=== PATIENT | female | born 1965 | race Caucasian/White ===

== ENCOUNTER 2018-06-17 12:04 | Emergency (ER) | payer OTHER, MEDICAID ==
--- NOTE | 2018-06-17 12:18 | EDPHY ---
HPI/HX/ROS/PE/MDM Narrative: CHIEF COMPLAINT: Right lower abdominal pain HPI: The patient is a 52 y/o female with a history of IBS, fibromyalgia, and dissociative identity disorder complaining of waxing and waning right lower abdominal pain, onset 2 weeks ago. She states that since the pain started she has lost 10 pounds. This pain is different than prior IBS flare ups as it is more painful. Around 30 minutes ago the pain exacerbated and started to radiate down into her right pelvis. This pain is currently "excruciating" and she feel like her "appendix is bursting", but it is waxing and waning. She denies history of abdominal surgery. No headache, neck pain, chest pain, shortness of breath, urinary or bowel complaints, numbness, paresthesias, fever. In addition to her IBS history she states that "some of my personalities are so sensitive that I felt seismic waves from hundreds of miles away". REVIEW OF SYSTEMS: Aside from elements discussed in the HPI, a comprehensive 10 system review of systems is otherwise negative. PMH: IBS, dissociative identity disorder, fibromyalgia, reflux SOCIAL HISTORY: Lives in [place], single, not employed PHYSICAL EXAM: General: Patient is alert, in no acute distress. ENT: Eyes are normal to inspection. ENT inspection normal. Neck: Normal inspection. Full range of motion. Respiratory: No respiratory distress. Breath sounds normal bilaterally. Cardiovascular: Regular rate and rhythm. Strong peripheral pulses. Normal cap refill. Abdomen: The abdomen is nontender to palpation. There are no peritoneal signs. There are normal bowel sounds. Back: Normal to inspection. No tenderness to palpation. Skin: Normal color. No rash. Warm and dry. Extremities: Normal appearance. Full range of motion. Neuro: Oriented x3. Normal motor function. Normal sensory function. ED Course: 1410: I reviewed patient's abdominopelvic CT which reveals constipation; radiologist reading still pending. Patient's labs are unremarkable. 1424: I spoke with Dr. Menard, radiologist, who reports that the patient has a right inguinal hernia without incarceration. The appendix is normal. 1429: Reassessed patient and discussed laboratory and imaging findings. I have advised her to follow up with a general surgeon in the next 1-2 weeks for further evaluation of the hernia. I have also advised her to use over-the- counter laxatives for the constipation. Return precautions provided; patient is comfortable with this plan. Upon informing her of these results, the patient said "I told you I have dissociative personality disorder right? So can you please remove my grandfather's hard cock from my 1-year old vagina?" Patient requested pain medication but I informed her that this would likely make constipation worse. - Data Points Imaging Results: Imaging Impressions Abdomen CT 06/17/18 12:33 Impression: 1. Normal CT appearance of the appendix. 2. There appears to be a direct right inguinal hernia containing fluid-filled bowel, with no evidence of incarceration or mechanical obstruction. 3. Moderate constipation. Findings were discussed with Des Sykes MD at 14:23, on 06/17/2018. Imaging: Discussed imaging studies w/ nut tightener Radiologist, I viewed and interpreted images myself Laboratory Results: Laboratory Results 06/17/18 12:32 06/17/18 12:32 06/17/18 06/17/18 06/17/18 12:43 12:37 12:32 WBC RBC Hgb POC Hgb 15.6 gm/dL gm/dL (12.6-16.3) Hct POC Hct 46 % % (38-47) MCV MCH MCHC RDW Plt Count MPV Neut % (Auto) Lymph % (Auto) [place] % (Auto) Eos % (Auto) Baso % (Auto) Nucleat RBC Rel Count Absolute Neuts (auto) Absolute Lymphs (auto) Absolute Monos (auto) Absolute Eos (auto) Absolute Basos (auto) Absolute Nucleated RBC Immature Gran % Immature Gran # POC Sodium 144 mEq/L mEq/L (135-145) Sodium 142 mEq/L mEq/L (135-145) POC Potassium 3.9 mEq/L mEq/L (3.3-5.0) Potassium 4.3 mEq/L mEq/L (3.3-5.0) POC Chloride 104 mEq/L mEq/L (97-110) Chloride 104 mEq/L mEq/L (97-110) Carbon Dioxide 29 mEq/l mEq/l (22-31) Anion Gap 9 mEq/L mEq/L (8-16) POC BUN 11 mg/dL mg/dL (7-23) BUN 13 mg/dL mg/dL (7-23) Creatinine 0.9 mg/dL mg/dL (0.6-1.0) POC Creatinine 0.9 mg/dL mg/dL (0.6-1.0) Estimated GFR > 60 Glucose 100 mg/dL mg/dL (70-100) POC Glucose 98 mg/dL mg/dL (70-100) Calcium 10.3 mg/dL mg/dL (8.5-10.4) Urine Color PALE YELLOW Urine Appearance CLEAR Urine pH 8.0 H (5.0-7.5) Ur Specific Elsie 1.003 (1.002-1.030) Urine Protein NEGATIVE (NEGATIVE) Urine Ketones NEGATIVE (NEGATIVE) Urine Blood NEGATIVE (NEGATIVE) Urine Nitrate NEGATIVE (NEGATIVE) Urine Bilirubin NEGATIVE (NEGATIVE) Urine Urobilinogen NEGATIVE EU EU (0.2-1.0) Ur Leukocyte Esterase NEGATIVE (NEGATIVE) Urine Glucose NEGATIVE (NEGATIVE) 06/17/18 12:32 WBC 5.29 10^3/uL 10^3/uL (3.80-9.50) RBC 5.10 10^6/uL 10^6/uL (4.18-5.33) Hgb 15.0 g/dL g/dL (12.6-16.3) POC Hgb Hct 44.2 % % (38.0-47.0) POC Hct MCV 86.7 fL fL (81.5-99.8) MCH 29.4 pg pg (27.9-34.1) MCHC 33.9 g/dL g/dL (32.4-36.7) RDW 12.0 % % (11.5-15.2) Plt Count 261 10^3/uL 10^3/uL (150-400) MPV 10.6 fL fL (8.7-11.7) Neut % (Auto) 43.4 % % (39.3-74.2) Lymph % (Auto) 46.9 % H % (15.0-45.0) [place] % (Auto) 8.7 % % (4.5-13.0) Eos % (Auto) 0.6 % % (0.6-7.6) Baso % (Auto) 0.2 % L % (0.3-1.7) Nucleat RBC Rel Count 0.0 % % (0.0-0.2) Absolute Neuts (auto) 2.30 10^3/uL 10^3/uL (1.70-6.50) Absolute Lymphs (auto) 2.48 10^3/uL 10^3/uL (1.00-3.00) Absolute Monos (auto) 0.46 10^3/uL 10^3/uL (0.30-0.80) Absolute Eos (auto) 0.03 10^3/uL 10^3/uL (0.03-0.40) Absolute Basos (auto) 0.01 10^3/uL L 10^3/uL (0.02-0.10) Absolute Nucleated RBC 0.00 10^3/uL 10^3/uL (0-0.01) Immature Gran % 0.2 % % (0.0-1.1) Immature Gran # 0.01 10^3/uL 10^3/uL (0.00-0.10) POC Sodium Sodium POC Potassium Potassium POC Chloride Chloride Carbon Dioxide Anion Gap POC BUN BUN Creatinine POC Creatinine Estimated GFR Glucose POC Glucose Calcium Urine Color Urine Appearance Urine pH Ur Specific [place] Urine Protein Urine Ketones Urine Blood Urine Nitrate Urine Bilirubin Urine Urobilinogen Ur Leukocyte Esterase Urine Glucose Medications Given: Discontinued Medications Ketorolac Tromethamine (Toradol) 15 mg IVP EDNOW ONE Stop: 06/17/18 13:02 Last Admin: 06/17/18 13:03 Dose: 15 mg Point of Care Test Results: Chemistry 06/17/18 12:37 POC Sodium 144 mEq/L mEq/L (135-145) POC Potassium 3.9 mEq/L mEq/L (3.3-5.0) POC Chloride 104 mEq/L mEq/L (97-110) POC BUN 11 mg/dL mg/dL (7-23) POC Creatinine 0.9 mg/dL mg/dL (0.6-1.0) POC Glucose 98 mg/dL mg/dL (70-100) ISTAT H&H 06/17/18 12:37 POC Hgb 15.6 gm/dL gm/dL (12.6-16.3) POC Hct 46 % % (38-47) General Time Seen by Provider: 06/17/18 12:17 Initial Vital Signs: Initial Vital Signs Temperature (C) 36.7 C 06/17/18 12:05 Heart Rate 63 06/17/18 12:05 Respiratory Rate 16 06/17/18 12:05 Blood Pressure 182/93 H 06/17/18 12:05 O2 Sat (%) 99 06/17/18 12:05 O2 Delivery Mode Room Air Allergies/Adverse Reactions: ampicillin [Ampicillin] Allergy (Intermediate, Verified 01/08/12 11:41) Hives lamotrigine [From Lamictal] Allergy (Intermediate, Verified 01/08/12 11:41) Hives Home Medications: Medication Instructions Recorded Iloperidone [FANAPT] 1 mg PO 08/25/14 Oxycodone HCl/Acetaminophen 08/25/14 [Percocet 10-325 mg Tablet] Tranylcypromine Sulfate [Parnate] 08/25/14 Zolpidem Tartrate [Ambien 10 mg] 08/25/14 Loestrin 21 1-20 Tablet 04/18/15 Lurasidone HCl [Latuda] 04/18/15 Nexium 04/18/15 Departure - Departure Disposition: Home, Routine, Self-Care Clinical Impression: Right inguinal hernia Constipation Qualifiers: Constipation type: unspecified constipation type Qualified Code(s): K59.00 - Constipation, unspecified Condition: Good Instructions: Constipation (ED), High Fiber Diet (ED), Inguinal Hernia (ED) Additional Instructions: You have a right-sided inguinal hernia. You need to followup with a general surgeon within the next 1-2 weeks without fail. You have been referred to Dr. Gonzalez, general surgeon. Return to the emergency department for vomiting, severe pain, or fever. Use [id number] laxatives as directed for you constipation. Referrals: Bharathi Guallpa DO [Primary Care Provider] - As per Instructions Ron Gonzalez MD [Medical Doctor] - As per Instructions Report Scribed for: Des Sykes Report Scribed by: Capri Montes Date of Report: 06/17/18 Time of Report: 12:18 Physician Review and Approval Statement: Portions of this note were transcribed by an ED scribe. I personally performed the history, physical exam, and medical decision making; and confirm the accuracy of the information in the transcribed note.
[2018-06-17 12:44] LABS: PLATELET COUNT 261 10^3/uL (150-400)
[2018-06-17] MEDS ORDERED: IOPAMIDOL (ISOVUE-300) 100 ML BTL ONE (12:48)
[2018-06-17] MEDS ORDERED: KETOROLAC 30 MG/1 ML SDV IVP ONE (13:01)
[2018-06-17 14:52] VITALS: BP 159/91
== END 2018-06-17 14:52 | disposition home or self-care (01) ==
DX: K59.00 Constipation, unspecified (principal); K40.90 Unilateral inguinal hernia, without obstruction or gangrene, not specified as recurrent; Z87.19 Personal history of other diseases of the digestive system
CPT/HCPCS: 74177; 96374; 99285; J1885; Q9967; 82435-PO; 82565-PO; 82947-PO; 84132-PO; 84295-PO; 84520-PO; 85014-PO

== ENCOUNTER 2018-06-27 22:11 | Emergency (ER) | payer OTHER, MEDICAID ==
[2018-06-27 22:17] VITALS: BP 126/89
[2018-06-27] MEDS ORDERED: KETOROLAC 15 MG/1 ML SDV IM ONE (22:33)
--- NOTE | 2018-06-27 23:26 | EDPHY ---
H & P Stated Complaint: generalized pain Time Seen by Provider: 06/27/18 22:24 HPI/ROS: HPI The patient presents with diffuse body pain, brought in by ambulance from her home in [place] [address]. The patient feels pain from her head to her toes. This is an achy pain which she has had before on several occasions. She was locked outside of her house and she feels that her symptoms may have gotten worse because of this.. She tried to call her marte large but was unable to reach him. She was seen here recently on June 17 for abdominal pain and was found to have a right-sided inguinal hernia. She has follow-up next week with Dr. Retana for further evaluation of this. She denies any abdominal pain. She says when she has pain like this oxycodone makes her feel better. REVIEW OF SYSTEMS 10 systems were reviewed and negative with the exception of the elements mentioned in the history of present illness. PMHx: Fibromyalgia, IBS, history of dissociated identity disorder Soc Hx: Lives by herself, has cats, several friends as neighbors PHYSICAL General Appearance: Alert, no distress Eyes: Pupils equal and round no pallor or injection ENT, Mouth: Mucous membranes moist Respiratory: There are no retractions, lungs are clear to auscultation Cardiovascular: Regular rate and rhythm Gastrointestinal: Abdomen is soft and non-tender, no masses, bowel sounds normal Neurological: A&O, moves all extremities Skin: Warm and dry, no rashes Musculoskeletal: Neck is supple non tender Extremities: symmetrical, full range of motion Psychiatric: Patient is oriented X 3, there is no agitation Source: Patient Exam Limitations: No limitations - Personal History LMP (Females 10-55): Unknown Current Tetanus/Diphtheria Vaccine: Unsure Current Tetanus Diphtheria and Acellular Pertussis (TDAP): Unsure - Medical/Surgical History Hx Asthma: No Hx Chronic Respiratory Disease: No Hx Diabetes: No Hx Cardiac Disease: No Hx Renal Disease: No Hx Cirrhosis: No Hx Alcoholism: No Hx HIV/AIDS: No Hx Splenectomy or Spleen Trauma: No Other PMH: depression, bipolar, acid reflux, fibromyalgia - Social History Smoking Status: Never smoked Constitutional: Initial Vital Signs Temperature (C) 36.6 C 06/27/18 22:13 Heart Rate 70 06/27/18 22:13 Respiratory Rate 16 06/27/18 22:13 Blood Pressure 126/89 H 06/27/18 22:13 O2 Sat (%) 98 06/27/18 22:13 O2 Delivery Mode Room Air Allergies/Adverse Reactions: ampicillin [Ampicillin] Allergy (Intermediate, Verified 06/27/18 22:13) Hives lamotrigine [From Lamictal] Allergy (Intermediate, Verified 06/27/18 22:13) Hives Home Medications: Medication Instructions Recorded Iloperidone [FANAPT] 1 mg PO 08/25/14 Oxycodone HCl/Acetaminophen 08/25/14 [Percocet 10-325 mg Tablet] Tranylcypromine Sulfate [Parnate] 08/25/14 Zolpidem Tartrate [Ambien 10 mg] 08/25/14 Loestrin 21 1-20 Tablet 04/18/15 Lurasidone HCl [Latuda] 04/18/15 Nexium 04/18/15 Medical Decision Making Differential Diagnosis: This is a 52-year-old female with history of fibromyalgia, IBS, dissociated identity disorder, history of right inguinal hernia who presents brought in by ambulance for diffuse body pain. On exam, she has normal vital signs and appears quite well. Her abdominal exam is benign and she is walking throughout the emergency department without any difficulty. Differential diagnosis includes fibromyalgia flare, musculoskeletal pain, possibly psychogenic. She was given an injection of Toradol with some improvement in her symptoms. She would like to be discharged home. A friend has come to pick her up. - Data Points Medications Given: Discontinued Medications Ketorolac Tromethamine (Toradol) 15 mg IM EDNOW ONE Stop: 06/27/18 22:34 Last Admin: 06/27/18 22:51 Dose: 15 mg Departure - Departure Disposition: Home, Routine, Self-Care Clinical Impression: Whole body pain Condition: Good Instructions: Fibromyalgia (ED), Pain Management (ED) Additional Instructions: Please return to the emergency department if you are worse in any way. Please follow-up with your primary care doctor in the next 1-2 days. Referrals: Bharathi Guallpa DO [Doctor of Osteopathy] - As per Instructions
== END 2018-06-27 23:45 | disposition home or self-care (01) ==
LOC: EDUNIT#
DX: R52 Pain, unspecified (principal); M79.7 Fibromyalgia
CPT/HCPCS: 96372; 99284; J1885

== ENCOUNTER 2018-07-02 06:28 | Day surgery (SDC) | payer OTHER, MEDICAID ==
[2018-07-02] MEDS ORDERED: ceFAZolin 2 GM/DEXTROSE 100 ML IV ONE (06:42)
[2018-07-02] MEDS ORDERED: LR 1,000 ML IV ONE (06:42)
[2018-07-02] MEDS ORDERED: VANCOMYCIN HCL/NORMAL SALINE 250 ML IV ONE (07:16)
[2018-07-02] MEDS ORDERED: BUPIVACAINE 0.5% 30 ML SDV ONE (07:19)
[2018-07-02] MEDS ORDERED: MIDAZOLAM 2 MG/2 ML VIAL IVP ONE (07:27)
[2018-07-02] MEDS ORDERED: FAMOTIDINE 20 MG/NACL 50 ML IV ONE (07:28)
[2018-07-02] MEDS ORDERED: VANCOMYCIN 1 GM in NS 250 ML IV ONE (07:30)
--- NOTE | 2018-07-02 07:30 | PDANEPAE ---
ANE Past Medical History - Cardiovascular History Hx Hypertension: Yes - Pulmonary History Hx Oxygen in Use at Home: No - Endocrine History Hx Diabetes: No ANE Review of Systems Review of Systems: ANE Patient History - Allergies Allergies/Adverse Reactions: ampicillin [Ampicillin] Allergy (Intermediate, Verified 06/27/18 22:13) Hives lamotrigine [From Lamictal] Allergy (Intermediate, Verified 06/27/18 22:13) Hives - Home Medications Home Medications: Iloperidone [FANAPT] 1 mg PO 08/25/14 [Last Taken 08/25/14] Oxycodone HCl/Acetaminophen [Percocet 10-325 mg Tablet] 08/25/14 [Last Taken ] Tranylcypromine Sulfate [Parnate] 08/25/14 [Last Taken 08/25/14] Zolpidem Tartrate [Ambien 10 mg] 08/25/14 [Last Taken 07/01/18] Loestrin 21 1-20 Tablet 04/18/15 [Last Taken Unknown] Lurasidone HCl [Latuda] 04/18/15 [Last Taken Unknown] Nexium 04/18/15 [Last Taken Unknown] Levothyroxine 88 mcg 07/02/18 [Last Taken 07/01/18] OLANZapine 2.5 mg 07/02/18 [Last Taken 07/01/18] Ondansetron 8 mg 07/02/18 [Last Taken 07/01/18] - Smoking Hx Smoking Status: Never smoked ANE Physical Exam - Airway Neck exam: FROM Mallampati Score: Class 2 Mouth exam: normal dental/mouth exam - Pulmonary Pulmonary: no respiratory distress, clear to auscultation - Cardiovascular Cardiovascular: regular rate and rhythym - ASA Status ASA Status: II ANE Anesthesia Plan Anesthesia Plan: general endotracheal anesthesia
[2018-07-02] MEDS ORDERED: fentaNYL 250 MCG/5 ML INJ ONE (07:32)
[2018-07-02] MEDS ORDERED: PROPOFOL/EMULSION 500 MG/50 ML BOTTLE IV ONE (07:33)
[2018-07-02] MEDS ORDERED: REMIFENTANIL HCL 1 MG VIAL ONE (07:33)
--- NOTE | 2018-07-02 07:36 | PDHPUP ---
History & Physical Update H&P update statement: This history and physical update is based on an assessment of the patient which was completed after admission or registration (within 24 hours), but prior to the surgery/procedure. H&P update: H&P reviewed & patient examined, changes noted (pt reported allergy to pcn and ancef. Changed abx to vancomycin)
[2018-07-02] MEDS ORDERED: MIDAZOLAM 2 MG/2 ML VIAL ONE (07:39)
[2018-07-02] MEDS ORDERED: ALBUTEROL 3 ML DEYVIAL IH PRN (07:51)
[2018-07-02] MEDS ORDERED: NALOXONE HCL 0.4 MG/ML INJ IVP PRN (07:51)
[2018-07-02] MEDS ORDERED: HYDROmorphONE/DILAUDID 2 MG/ML INJ IVP PRN (07:51)
[2018-07-02] MEDS ORDERED: NS 500 ML IV PRN (07:51)
[2018-07-02] MEDS ORDERED: ONDANSETRON 4 MG/2 ML VIAL IVP PRN (07:51)
[2018-07-02] MEDS ORDERED: DIAZEPAM 5 MG/ML 1 ML SYR IVP PRN (07:51)
[2018-07-02] MEDS ORDERED: ROCURONIUM 50 MG/5 ML VIAL ONE (08:19)
[2018-07-02] MEDS ORDERED: DEXAMETHASONE 4 MG/ML VIAL ONE (08:20)
[2018-07-02] MEDS ORDERED: ONDANSETRON 4 MG/2 ML VIAL ONE (08:20)
[2018-07-02] MEDS ORDERED: KETOROLAC 30 MG/1 ML SDV ONE (08:47)
--- NOTE | 2018-07-02 08:57 | POSTOPPROG ---
Post Op Note Date of Operation: 07/02/18 Surgeon: Sierra Retana Anesthesiologist: steve Anesthesia: GET(General Endotracheal) Pre-op Diagnosis: RIH Post-op Diagnosis: RIH Indication: 52 yo with RIH Procedure: lap RIH with mesh Findings: RIH indirect Inf/Abcess present in the surg proc area at time of surgery?: No Depth: Superfical (Skin SQ) Specimen(s): none
--- NOTE | 2018-07-02 09:17 | GOP ---
DATE OF OPERATION: 07/02/2018 SURGEON: Sierra Retana MD ANESTHESIA: General. ANESTHESIOLOGIST: Lory Cobos DO. PREOPERATIVE DIAGNOSIS: Right inguinal hernia. POSTOPERATIVE DIAGNOSIS: Initial right indirect inguinal hernia. PROCEDURE PERFORMED: Laparoscopic right inguinal hernia repair with mesh. FINDINGS: Right indirect inguinal hernia. SPECIMENS: None. ESTIMATED BLOOD LOSS: 5 cc. INDICATIONS: Chantal Joyner is a 52-year-old woman who presented to the ER with right lower quadran t pain. A CT scan was obtained, which showed a right inguinal hernia. DESCRIPTION OF PROCEDURE: Patient was brought into the operating room, placed supine on the table, a nd general anesthesia was administered. Her abdomen was prepped and draped in the usual sterile fash ion. I infiltrated all sites with 0.5% Marcaine prior to making an incision. Made an incision benea th her umbilicus. I dissected down through the skin and subcutaneous tissues. I encountered the ant erior rectus sheath. I divided this and created a space between the anterior and posterior rectus sh eath. I inserted a balloon-tipped trocar directed toward the pubis and performed hand insufflation w ith the camera in place. I then exchanged this for the working balloon and connected to 15 mm of pre ssure. She was placed in the Trendelenburg position. I placed an extra 5 mm suprapubic trocar and a 5 mm trocar between the 1st and 2nd trocars. I identified her pubis and swept this free of investing tissue. Her inferior epigastric vessels were kept anterior to the plane. I could see a large hernia sac coursing along the round ligament. I cl ipped the round ligament and divided it. There was a small breach in the peritoneum, which was also clipped. After the space was cleared, I placed a piece of laparoscopic self-fixating ProGrip mesh to cover the direct, indirect, and femoral spaces. This was tacked to the pubic tubercle and anteriorl y. No abnormalities noted on the left side. The ports were removed under direct vision. The preperitoneal space allowed to desufflate. I closed the fascia at the 10 mm trocar site with 0 Vicryl, closed the skin with 4-0 Monocryl. Dermabond lisa lied. She was awakened in the operating room, extubated, and transferred to PACU in stable condition . /[id number]/MODL
[2018-07-02] MEDS ORDERED: fentaNYL 100 MCG/2 ML INJ ONE (09:20)
[2018-07-02] MEDS: fentaNYL 100 MCG/2 ML INJ IVP PRN ×2 (09:22→10:29)
--- NOTE | 2018-07-02 09:29 | POSTANESTH ---
Post Anesthetic Evaluation Respiratory Status: Normal, Stable Level of Consciousness/Mental Status: Can Participate in Eval Pain Control: Adequate, Prn Tx Ordered Nausea/Vomiting Control: Adequate, Prn Tx Ordered Complications Possibly Related to Anesthesia: None Noted
[2018-07-02] MEDS ORDERED: SUGAMMADEX SODIUM 200 MG/2 ML VIAL IVP ONE (09:40)
[2018-07-02 11:06] VITALS: BP 118/72
== END 2018-07-02 12:20 | disposition home or self-care (01) ==
LOC: FSGY 06:28
PROVIDERS: ATTEND Surgery
PROC: 0YU54JZ Supplement Right Inguinal Region with Synthetic Substitute, Percutaneous Endoscopic Approach (ICD-10-PCS; principal; 2018-07-02 08:00)
DX: K40.90 Unilateral inguinal hernia, without obstruction or gangrene, not specified as recurrent (principal); I10 Essential (primary) hypertension
CPT/HCPCS: C1727; C1781; J1100; J1885; J2250; J2405; J2704; J3010; J3370

== ENCOUNTER 2018-07-14 12:04 | Emergency (ER) | payer OTHER, MEDICAID ==
[2018-07-14] MEDS ORDERED: NS 1,000 ML IV ONE (13:29)
--- NOTE | 2018-07-14 13:35 | EDPHY ---
H & P Stated Complaint: abd pain Time Seen by Provider: 07/14/18 13:24 HPI/ROS: CHIEF COMPLAINT: Chronic abdominal pain HISTORY OF PRESENT ILLNESS: The patient is a 52-year-old female who comes to the emergency department complaining of abdominal pain as well as nausea for about the last 3 months. She states that she has tried to get into a gastrologist but cannot. She is suspicious that it is her gallbladder because she has had gallbladder sludge in the past. She also had a inguinal hernia with laparoscopic repair [address] Sierra Retana. She states that this is doing well. No fever. No vomiting. She has a history of depression, bipolar, multiple personality disorder. She states that she eyelids 35 personalities and that most of them have chronic abdominal pain but not all of them. She states that she cannot get through the abdominal pain and left she "gets extremely high" and is able to transition into 1 of her other personalities. She also has a history of fibromyalgia, GERD, IBS and endometriosis. She states that she has not had a period in several months but this is not unusual for her. No urinary symptoms. Severity: Severe Modifying factors: Improves with illicit drugs REVIEW OF SYSTEMS: Constitutional: denies: chills, fever, recent illness, recent injury EENTM: denies: blurred vision, double vision, nose congestion Respiratory: denies: cough, shortness of breath Cardiac: denies: chest pain, irregular heart rate, lightheadedness, palpitations Gastrointestinal/Abdominal: See HPI Genitourinary: denies: dysuria, frequency, hematuria, pain Musculoskeletal: denies: joint pain, muscle pain Skin: denies: lesions, rash, jaundice, bruising Neurological: denies: headache, numbness, paresthesia, tingling, dizziness, weakness Hematologic/Lymphatic: denies: blood clots, easy bleeding, easy bruising Immunologic/allergic: denies: HIV/AIDS, transplant 10 systems reviewed and negative except as noted EXAM: GENERAL: Anxious, thin and in no acute distress. HEAD: Atraumatic, normocephalic. EYES: Pupils equal round and reactive to light, extraocular movements intact, sclera anicteric, conjunctiva are normal. ENT: TMs normal, nares patent, oropharynx clear without exudates. Moist mucous membranes. NECK: Normal range of motion, supple without lymphadenopathy or JVD. LUNGS: Breath sounds clear to auscultation bilaterally and equal. No wheezes rales or rhonchi. HEART: Regular rate and rhythm without murmurs, rubs or gallops. ABDOMEN: Mild left lower quadrant tenderness, normoactive bowel sounds. No guarding, no rebound. No masses appreciated. The laparoscopic wounds clean dry and intact BACK: No CVA tenderness, no spinal tenderness, step-offs or deformities EXTREMITIES: Normal range of motion, no pitting or edema. No clubbing or cyanosis. NEUROLOGICAL: Cranial nerves II through XII grossly intact. Normal speech, normal gait. 5/5 strength, normal movement in all extremities, normal sensation , normal reflexes PSYCH: Anxious, rapid speech able to answer all questions appropriately SKIN: Warm, dry, normal turgor, no visible rashes or lesions. Source: Patient Exam Limitations: Clinical condition - Personal History LMP (Females 10-55): Post Menopausal Current Tetanus/Diphtheria Vaccine: Unsure Current Tetanus Diphtheria and Acellular Pertussis (TDAP): Unsure - Medical/Surgical History Hx Asthma: No Hx Chronic Respiratory Disease: No Hx Diabetes: No Hx Cardiac Disease: No Hx Renal Disease: No Hx Cirrhosis: No Hx Alcoholism: No Hx HIV/AIDS: No Hx Splenectomy or Spleen Trauma: No Other PMH: depression, bipolar, acid reflux, fibromyalgia, multiple personality disorder, endometriosis, IBS, , GERD - Social History Smoking Status: Never smoked Constitutional: Initial Vital Signs Temperature (C) 37.1 C 07/14/18 12:13 Heart Rate 73 07/14/18 12:13 Respiratory Rate 16 07/14/18 12:13 Blood Pressure 100/75 07/14/18 12:13 O2 Sat (%) 95 07/14/18 12:13 O2 Delivery Mode Room Air Allergies/Adverse Reactions: ampicillin [Ampicillin] Allergy (Intermediate, Verified 07/14/18 12:11) Hives lamotrigine [From Lamictal] Allergy (Intermediate, Verified 07/14/18 12:11) Hives Home Medications: Medication Instructions Recorded Oxycodone HCl/Acetaminophen 08/25/14 [Percocet 10-325 mg Tablet] Zolpidem Tartrate [Ambien 10 mg] 08/25/14 OLANZapine 2.5 mg 07/02/18 Ondansetron 8 mg 07/02/18 Lorazepam 07/14/18 Medical Decision Making - Diagnostics Imaging Results: Imaging Impressions Abdomen CT 07/14/18 13:30 Impression: 1. Postsurgical change of interval right inguinal hernia repair with inflammatory stranding and small loculated fluid collections suggestive of abscess formation. 2. Mural thickening with adjacent inflammatory stranding hepatic flexure/ ascending colon may be reactive secondary to peritonitis, however colitis of infectious/inflammatory nature is an additional consideration. 3. Retroperitoneal lymphadenopathy is likely reactive in nature, however malignancy cannot be radiographically excluded. Follow-up CT scan in 3 months is recommended These findings were discussed with Dr. Smart at 3:05 PM on 07/14/2018 Imaging: Discussed imaging studies w/ fisher scallop Radiologist ED Course/Re-evaluation: The patient's lab work is reassuring. She is afebrile. However on her CT scan there appears to be several small abscesses with stranding in the area of her inguinal hernia repair 2 weeks ago. I placed a call out to Dr. Retana's practice. Likely started on antibiotics. 3:10 p.m. I discussed the case with Dr. Pitts who will come to evaluate. 3:[address] Retana has evaluated the patient and will follow up with her clinic on . She thinks that this is bruising more than abscess or infection. This would fit clinically based on the patient's exam and lab work and lack of fever. Patient feels comfortable with this plan. She declines further workup or testing at this time. Differential Diagnosis: Partial list of the Differential diagnosis considered include but were not limited to; chronic abdominal pain, diverticulitis and although unlikely based on the history and physical exam, I also considered abscess, kidney stone, a perforation, obstruction. I discussed these differential diagnoses and the plan with the patient as well as the usual and expected course. The patient understands that the diagnosis is provisional and that in medicine we are not always correct and that further workup is often warranted. Usual and customary warnings were given. All of the patient's questions were answered. The patient was instructed to return to the emergency department should the symptoms at all worsen or return, otherwise to followup with the physician as we discussed. - Data Points Laboratory Results: Laboratory Results 07/14/18 13:45 07/14/18 13:45 07/14/18 07/14/18 07/14/18 13:50 13:45 13:45 WBC RBC Hgb POC Hgb 14.6 gm/dL gm/dL (12.6-16.3) Hct POC Hct 43 % % (38-47) MCV MCH MCHC RDW Plt Count MPV Neut % (Auto) Lymph % (Auto) Sebastian % (Auto) Eos % (Auto) Baso % (Auto) Nucleat RBC Rel Count Absolute Neuts (auto) Absolute Lymphs (auto) Absolute Monos (auto) Absolute Eos (auto) Absolute Basos (auto) Absolute Nucleated RBC Immature Gran % Immature Gran # POC Sodium 141 mEq/L mEq/L (135-145) Sodium 139 mEq/L mEq/L (135-145) POC Potassium 4.1 mEq/L mEq/L (3.3-5.0) Potassium 4.2 mEq/L mEq/L (3.3-5.0) POC Chloride 100 mEq/L mEq/L (97-110) Chloride 101 mEq/L mEq/L (97-110) Carbon Dioxide 28 mEq/l mEq/l (22-31) Anion Gap 10 mEq/L mEq/L (8-16) POC BUN 14 mg/dL mg/dL (7-23) BUN 15 mg/dL mg/dL (7-23) Creatinine 0.9 mg/dL mg/dL (0.6-1.0) POC Creatinine 0.9 mg/dL mg/dL (0.6-1.0) Estimated GFR > 60 Glucose 86 mg/dL mg/dL (70-100) POC Glucose 84 mg/dL mg/dL (70-100) Calcium 10.4 mg/dL mg/dL (8.5-10.4) Total Bilirubin 0.4 mg/dL mg/dL (0.1-1.4) Conjugated Bilirubin 0.1 mg/dL mg/dL (0.0-0.5) Unconjugated Bilirubin 0.3 mg/dL mg/dL (0.0-1.1) AST 29 IU/L IU/L (14-46) ALT 42 IU/L IU/L (9-52) Alkaline Phosphatase 87 IU/L IU/L (38-126) Total Protein 7.5 g/dL g/dL (6.3-8.2) Albumin 4.6 g/dL g/dL (3.5-5.0) Lipase 83 IU/L IU/L (23-300) Beta HCG, Qual NEGATIVE Urine Color Urine Appearance Urine pH Ur Specific [place] Urine Protein Urine Ketones Urine Blood Urine Nitrate Urine Bilirubin Urine Urobilinogen Ur Leukocyte Esterase Urine RBC Urine WBC Ur Epithelial Cells Urine Glucose 07/14/18 07/14/18 07/14/18 13:45 12:30 12:15 WBC 5.99 10^3/uL 10^3/uL (3.80-9.50) RBC 4.78 10^6/uL 10^6/uL (4.18-5.33) Hgb 14.1 g/dL g/dL (12.6-16.3) POC Hgb Hct 42.1 % % (38.0-47.0) POC Hct MCV 88.1 fL fL (81.5-99.8) MCH 29.5 pg pg (27.9-34.1) MCHC 33.5 g/dL g/dL (32.4-36.7) RDW 12.1 % % (11.5-15.2) Plt Count 242 10^3/uL 10^3/uL (150-400) MPV 11.2 fL fL (8.7-11.7) Neut % (Auto) 57.6 % % (39.3-74.2) Lymph % (Auto) 29.0 % % (15.0-45.0) Sebastian % (Auto) 9.8 % % (4.5-13.0) Eos % (Auto) 2.7 % % (0.6-7.6) Baso % (Auto) 0.7 % % (0.3-1.7) Nucleat RBC Rel Count 0.0 % % (0.0-0.2) Absolute Neuts (auto) 3.45 10^3/uL 10^3/uL (1.70-6.50) Absolute Lymphs (auto) 1.74 10^3/uL 10^3/uL (1.00-3.00) Absolute Monos (auto) 0.59 10^3/uL 10^3/uL (0.30-0.80) Absolute Eos (auto) 0.16 10^3/uL 10^3/uL (0.03-0.40) Absolute Basos (auto) 0.04 10^3/uL 10^3/uL (0.02-0.10) Absolute Nucleated RBC 0.00 10^3/uL 10^3/uL (0-0.01) Immature Gran % 0.2 % % (0.0-1.1) Immature Gran # 0.01 10^3/uL 10^3/uL (0.00-0.10) POC Sodium Sodium POC Potassium Potassium POC Chloride Chloride Carbon Dioxide Anion Gap POC BUN BUN Creatinine POC Creatinine Estimated GFR Glucose POC Glucose Calcium Total Bilirubin Conjugated Bilirubin Unconjugated Bilirubin AST ALT Alkaline Phosphatase Total Protein Albumin Lipase Beta HCG, Qual Urine Color PALE YELLOW Urine Appearance CLEAR Urine pH 8.0 H (5.0-7.5) Ur Specific [place] 1.002 (1.002-1.030) Urine Protein NEGATIVE (NEGATIVE) Urine Ketones NEGATIVE (NEGATIVE) Urine Blood NEGATIVE (NEGATIVE) Urine Nitrate NEGATIVE (NEGATIVE) Urine Bilirubin NEGATIVE (NEGATIVE) Urine Urobilinogen NEGATIVE EU EU (0.2-1.0) Ur Leukocyte Esterase NEGATIVE (NEGATIVE) Urine RBC 1-3 /hpf /hpf (0-3) Urine WBC 1-3 /hpf /hpf (0-3) Ur Epithelial Cells NONE SEEN /lpf /lpf (NONE-1+) Urine Glucose NEGATIVE (NEGATIVE) Medications Given: Discontinued Medications Sodium Chloride (Ns) 1,000 mls @ 0 mls/hr IV EDNOW ONE; Wide Open PRN Reason: Protocol Stop: 07/14/18 13:30 Last Admin: 07/14/18 13:40 Dose: 1,000 mls Point of Care Test Results: Chemistry 07/14/18 13:50 POC Sodium 141 mEq/L mEq/L (135-145) POC Potassium 4.1 mEq/L mEq/L (3.3-5.0) POC Chloride 100 mEq/L mEq/L (97-110) POC BUN 14 mg/dL mg/dL (7-23) POC Creatinine 0.9 mg/dL mg/dL (0.6-1.0) POC Glucose 84 mg/dL mg/dL (70-100) ISTAT H&H 07/14/18 13:50 POC Hgb 14.6 gm/dL gm/dL (12.6-16.3) POC Hct 43 % % (38-47) Departure - Departure Disposition: Home, Routine, Self-Care Clinical Impression: Abdominal pain Qualifiers: Abdominal location: generalized Qualified Code(s): R10.84 - Generalized abdominal pain Condition: Fair Instructions: Abdominal Pain (ED) Referrals: Bharathi Guallpa DO [Primary Care Provider] - As per Instructions Sierra Retana MD [Medical Doctor] - 1-2 days without fail
[2018-07-14 13:58] LABS: PLATELET COUNT 242 10^3/uL (150-400)
[2018-07-14] MEDS ORDERED: IOPAMIDOL (ISOVUE-300) 100 ML BTL ONE (14:11)
[2018-07-14 14:53] VITALS: BP 104/71
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
== END 2018-07-14 15:40 | disposition home or self-care (01) ==
DX: R10.84 Generalized abdominal pain (principal); R11.0 Nausea; E86.9 Volume depletion, unspecified
CPT/HCPCS: 74177; 96360; 99285; Q9967; 82435-PO; 82565-PO; 82947-PO; 84132-PO; 84295-PO; 84520-PO; 85014-PO

== ENCOUNTER 2018-09-24 14:16 | Inpatient (IN) | payer OTHER ==
--- NOTE | 2018-09-24 15:11 | EDPHY ---
H & P Stated Complaint: feeling confused and "out of it" denies SI/HI - Personal History Current Tetanus Diphtheria and Acellular Pertussis (TDAP): Unsure - Medical/Surgical History Hx Asthma: No Hx Chronic Respiratory Disease: No Hx Diabetes: No Hx Cardiac Disease: No Hx Renal Disease: No Hx Cirrhosis: No Hx Alcoholism: No Hx HIV/AIDS: No Hx Splenectomy or Spleen Trauma: No Other PMH: depression, bipolar, acid reflux, fibromyalgia, multiple personality disorder, endometriosis, IBS, hypothyroid - Social History Smoking Status: Never smoked Time Seen by Provider: 09/24/18 14:43 HPI/ROS: CHIEF COMPLAINT: Depression HISTORY OF PRESENT ILLNESS: 53-year-old female with bipolar disorder presents with severe depression. Onset of depression in July 2018, gradually increasing depression since then. Now mainly sitting at home doing nothing because of depression. Not eating, not drinking and not sleeping. Likely not taking her medications, but she is not sure. The no recent illness or fever. REVIEW OF SYSTEMS: complete 10 point ROS reviewed and is negative except for the noted elements in the HPI (Letitia Casiano) - Physical Exam Exam: General Appearance: Alert, cooperative Eyes: Pupils equal and round, no conjunctival pallor ENT, Mouth: Mucous membranes moist Neck: Normal inspection Respiratory: Lungs are clear to auscultation Cardiovascular: Regular rate and rhythm Gastrointestinal: Abdomen is soft and nontender Neurological: A&O, nonfocal, normal gait Skin: Warm and dry Extremities: Normal inspection Psychiatric: Flat affect (Letitia Casiano S) Constitutional: Initial Vital Signs Temperature (C) 36.9 C 09/24/18 14:22 Heart Rate 79 09/24/18 14:22 Respiratory Rate 14 09/24/18 14:22 Blood Pressure 109/62 09/24/18 14:22 O2 Sat (%) 97 09/24/18 14:22 O2 Delivery Mode Room Air Allergies/Adverse Reactions: ampicillin [Ampicillin] Allergy (Intermediate, Verified 09/24/18 14:18) Hives lamotrigine [From Lamictal] Allergy (Intermediate, Verified 09/24/18 14:18) Hives Home Medications: Medication Instructions Recorded Zolpidem Tartrate [Ambien 10 mg] 08/25/14 OLANZapine 2.5 mg 07/02/18 Gabapentin 09/24/18 Hydroxyzine Pamoate 09/24/18 Levothyroxine 09/24/18 Ranitidine HCl 09/24/18 Venlafaxine 75MG (*) 09/24/18 ZOLPIDEM TARTRATE 09/24/18 Medical Decision Making ED Course/Re-evaluation: Medically cleared by me. 8:30pm-seen by mental health and felt appropriate for inpatient treatment of depression, possibly with psychotic features. Placed on an M1 hold. Looking for inpatient disposition. (Letitia Casiano) Patient has remained stable on my shift. (Art Salinas) 7:00 a.m.- Patient has been accepted to [address] [place] [address] Ort[address] I have completed the EMTALA form. (Ingrid Lawrence) Care Turn Over: Care to Dr. Bobby at 11:00 p.m. (Art Salinas) 6:35 a.m.- Patient has been stable overnight. She continues to await mental health placement. The case will be signed out to Dr. Sykes at change of shift at 7: 00 a.m.. (Ingrid Lawrence) - Data Points Laboratory Results: Laboratory Results 09/24/18 15:02 09/24/18 15:02 09/24/18 20:55 Urine Opiates Screen NEGATIVE (NEGATIVE) Urine Barbiturates NEGATIVE (NEGATIVE) Ur Phencyclidine Scrn NEGATIVE (NEGATIVE) Ur Amphetamine Screen NEGATIVE (NEGATIVE) U Benzodiazepines Scrn NEGATIVE (NEGATIVE) Urine Cocaine Screen NEGATIVE (NEGATIVE) U Marijuana (THC) Screen NEGATIVE (NEGATIVE) Departure - Departure Disposition: [facility] IP Clinical Impression: Severe major depression Condition: Fair Referrals: NONE *PRIMARY CARE P,. [Primary Care Provider] - As per Instructions
[2018-09-24 15:12] LABS: PLATELET COUNT 316 10^3/uL (150-400)
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
--- NOTE | 2018-09-24 22:59 | ASMTTCLDSP ---
TLC Discharge Disposition Disposition: Answers: Admit Discharge Concerns/Recommendations: Notes: In consultation with [facility] ED physician, Ingrid Lawrence MD and on-call psychiatrist, Ya Ortiz MD, both concurred that pt appears to meet 27-65 criteria requiring psychiatric hospitalization as pt appears to be at risk of harm to self due to a mental illness condition. Was patient given the Answers: Yes Inpatient Behavioral Health Prohibited Belongings List while in the ED? For inpatient Ya Ortiz MD admission, the following psychiatrist agreed to accept patient for admission to Behavioral [facility] ([facility]): Date Signed: 09/24/2018 10:58 PM Electronically Signed By:Denice Winkler
--- NOTE | 2018-09-24 23:00 | ASMTLCPROG ---
Notes Note: Notes: Correction on TLC eval: Dr. Ya Ortiz is the accepting psychiatrist Date Signed: 09/24/2018 10:59 PM Electronically Signed By:Denice Winkler
[2018-09-25] MEDS ORDERED: LEVOTHYROXINE 88 MCG TAB PO ONE (08:01)
[2018-09-25] MEDS ORDERED: NICOTINE POLACRILEX 2 MG GUM B PRN (12:21)
[2018-09-25] MEDS ORDERED: MAG HYDROX/AL HYDROX/SIMETH 30 ML UDCUP PO PRN (12:21)
[2018-09-25] MEDS ORDERED: ACETAMINOPHEN 325 MG TAB PO PRN (12:21)
[2018-09-25] MEDS ORDERED: MAGNESIUM HYDROXIDE 30 ML UDCUP PO PRN (12:21)
--- NOTE | 2018-09-25 12:42 | PDMN ---
Medical Necessity Medical necessity: [facility] [place] [id number] Bipolar Disorders, Adult: Inpatient Care: 53 yo w / Bipolar II d/o depressed severe and PTSD, risk of harm to self, M1 hold
[2018-09-25] MEDS ORDERED: VENLAFAXINE XR 75 MG CAP PO ONE (13:23)
[2018-09-25] MEDS: AQUAPHOR OINTMENT 3.5 OZ JAR TP SCH ×3 (14:46→22:40)
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
--- NOTE | 2018-09-25 19:01 | BCON ---
INTERNAL MEDICINE CONSULTATION. DATE OF CONSULTATION: 09/25/2018 REFERRING PHYSICIAN: Ivan Wells NP REASON FOR REFERRAL: Medical clearance for inpatient behavioral health stay. HISTORY OF PRESENT ILLNESS: This patient came to the emergency department yesterday complaining of severe depression. She reported that she had been not eating, not drinking and not sleeping and likely not taking her medications. She tells me today that she thinks she was compliant with her levothyroxine, but was not taking her psychiatric medications. She was evaluated by the mental health team and admitted for further psychiatric care. She complains of constipation. She denies abdominal pain. She has had a reduced appetite and weight loss. She reports that she usually takes a magnesium pill for the constipation. PAST MEDICAL HISTORY: 1. Mental health issues with diagnoses of depression, PTSD, and bipolar disorder. 2. Fibromyalgia. 3. Irritable bowel syndrome. 4. Hypothyroidism. PAST SURGICAL HISTORY: She has had an inguinal hernia repair. MEDICATIONS: Prior to admission: 1. Oxycodone, which she reports she has not used for a while. 2. Olanzapine 5 mg p.o. at bedtime. 3. Gabapentin 300 mg p.o. at bedtime. 4. Hydroxyzine 25-50 mg twice daily p.r.n. 5. Zolpidem 10 mg at bedtime p.r.n. 6. Venlafaxine XR 225 mg p.o. daily. 7. Ranitidine 150 mg p.o. twice daily p.r.n. 8. Levothyroxine 88 mcg p.o. daily. ALLERGIES: Listed to ampicillin and lamotrigine, both of which caused hives. SOCIAL HISTORY: She is on Disability. She has worked in the past as a massage therapist. She is a nonsmoker and nondrinker. Per chart review, she used considerable marijuana through the summer, but not in the fall. FAMILY HISTORY: Noncontributory for the purposes of this medical evaluation. REVIEW OF SYSTEMS: As in HPI. She reports anorexia, constipation, weight loss , and medication noncompliance. She denies nausea or vomiting. She denies abdominal pain. She denies dysuria or urinary frequency. Otherwise, a 10- point review of systems is negative. PHYSICAL EXAM: VITAL SIGNS: Blood pressure is 140/78. Previously since she presented at the emergency department, it has not been elevated. Heart rate is 83, respiratory rate is 14, oxygen saturation is 97% on room air. Temperature is 36.8 degrees centigrade. Her weight is 47.6 kg for a body mass index of 18.6 , and this represents a 2 kg weight loss in the past 3 months per chart review. GENERAL: This is a thin woman appears older than her chronologic age, sitting in a chair, dressed in street clothes, cooperative and in no acute distress. HEENT extraocular movements are intact. Pupils are equal, round, reactive to light. Mucous membranes are moist. Dentition is in good condition. She has an uncrowded airway, Mallampati class 1. NECK: Supple. HEART: Regular rate and rhythm with no murmurs, rubs, or gallops. LUNGS: Clear to auscultation bilaterally. ABDOMEN: Soft, nontender, nondistended with normoactive bowel sounds. EXTREMITIES: There is no cyanosis, clubbing, or edema. NEUROLOGIC: She is alert, orientation was not checked. Cranial nerves 2-12 are grossly intact. There is no focal weakness. Sensation is intact to light touch. LABORATORY STUDIES: From yesterday in the emergency department, CBC showed an elevated hemoglobin and hematocrit at 16.5 and 48.4. Serum chemistry was consistent with dehydration with a BUN of 32 and a creatinine of 0.8. Otherwise , renal function and electrolytes were within normal limits. Toxicology screen in the serum was negative for ethyl alcohol and the urine was negative for any substances of abuse. ASSESSMENT/RECOMMENDATIONS: 1. Mental health issues pending further evaluation and treatment per Psychiatry and the mental health team. 2. Constipation and irritable bowel syndrome. She reports that she has used magnesium pills in the past. Milk of magnesia has been prescribed. She reports that she took it in pill form, but it should not be significantly different from the liquid form. She reported that her partner can bring in the pill that she uses and in the interim, it would be reasonable to continue magnesium hydroxide and monitor for response. If magnesium is not effective, consider multiple other options. 3. Weight loss, likely due to her psychiatric issues. TSH was last checked in January of this year, so it is reasonable to recheck. TSH has been ordered by nurse practitioner, Ivan Wells. 4. Hypothyroidism. Recheck TSH as above. 5. Chronic pain. She reports that she has not been using oxycodone. Acetaminophen has been ordered and is appropriate to continue. 6. Likely dehydration and likely hemoconcentration as evidenced by elevated BUN to creatinine ratio and by elevated hemoglobin and hematocrit. Encourage normal fluid intake. Anticipate this will improve as her mental health condition stabilizes. 7. Complained of dry skin. I will order Aquaphor. I see no medical contraindications to this patient's continued stay on the inpatient behavioral health unit or to any psychiatric medications or procedures. Thank you very much for including me in the care of this patient and please do not hesitate to contact me or the hospitalist service should there be need for further medical evaluation. /[id number]/MODL MTDD
[2018-09-25] MEDS: MIRTAZAPINE 15 MG TAB PO SCH (20:27)
[2018-09-25] MEDS: OLANZapine DISINTEGR 10 MG TAB PO PRN (23:55)
[2018-09-25] MEDS: LORazepam 0.5 MG TAB PO PRN (23:55)
[2018-09-26] MEDS ORDERED: LEVOTHYROXINE 88 MCG TAB PO SCH (06:00)
[2018-09-26] MEDS ORDERED: LEVOTHYROXINE 88 MCG TAB PO ONE (07:51)
[2018-09-26] MEDS: VENLAFAXINE XR 37.5 MG CAP PO SCH (08:11)
[2018-09-26] MEDS: AQUAPHOR OINTMENT 3.5 OZ JAR TP SCH ×2 (08:18→21:16)
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
[2018-09-26] MEDS ORDERED: ZOLPIDEM TARTRATE 5 MG TAB PO PRN (17:03)
--- NOTE | 2018-09-26 17:07 | SOAPPROG ---
SOAP Progress Note Assessment/Plan: Assessment: 53 yo with prior h/o depression and anxiety. Came to ED b/c she has been sitting at home "doing nothing," not eating, not sleeping, not working. Plan: 09/26/18 17:06 1. Patient admits she has not been taking meds for several days. She understands she will need to restart meds at lower dose to avoid SE's. She agreed to trial of Remeron which was recommended by Ivan Wells, however, patient states the medication "didn't help" her sleep better last night. MD explained there may be many reasons patient had difficulty sleeping in hospital and may take longer than one night to notice improvement with new medication. Patient states she wants to be on Ambien which her PCP had been prescribing PRN. MD agreed to add Ambien, but at lower dose (5mg) since she is also taking Remeron and has melatonin, Olanzapine and Ativan available PRN. 2. MD spent a great deal of time counseling patient on causes and treatments for insomnia. Patient admits she is "terrified" of not getting enough sleep. She states she obsessively worries about it all the time, which interferes with her ability to do the things most likely to promote good sleep, such as eat healthy foods, exercise, maintain supportive relationships and avoid isolating at home. MD discussed options such as CBT and CBT for insomnia as well as MBSR and other forms of therapy. Patient said she will talk to providers at [facility] about doing one of these treatments as part of her therapy and possibly going to a support group. MD stressed the effectiveness of CBTi for insomnia, and suggested the [facility] for additional services. 3. Patient denies any c/o SE's from re-starting medications. 4. Patient will f/u with Dr. De La Rosa and [facility] providers after d/c. Subjective: Patient admits she has not been taking meds for several days. She understands she will need to restart meds at lower dose to avoid SE's. She agreed to trial of Remeron which was recommended by Ivan Wells, however, patient states the medication "didn't help" her sleep better last night. explained there may be many reasons patient had difficulty sleeping in hospital and may take longer than one night to notice improvement with new medication. Patient states she wants to be on Ambien which her PCP had been prescribing PRN. MD agreed to add Ambien, but at lower dose (5mg) since she is also taking Remeron and has melatonin, Olanzapine and Ativan available PRN. MD spent a great deal of time counseling patient on causes and treatments for insomnia. Patient admits she is "terrified" of not getting enough sleep. She states she obsessively worries about it all the time, which interferes with her ability to do the things most likely to promote good sleep, such as eat healthy foods, exercise, maintain supportive relationships and avoid isolating at home. MD discussed options such as CBT and CBT for insomnia as well as MBSR and other forms of therapy. Patient said she will talk to providers at [facility] about doing one of these treatments as part of her therapy and possibly going to a support group. MD stressed the effectiveness of CBTi for insomnia, and suggested the [facility] for additional services. Objective: Vital Signs Temp Pulse Resp BP Pulse Ox 36.8 C 71 16 116/76 98 09/26/18 06:00 09/26/18 06:00 09/26/18 06:00 09/26/18 06:00 09/26/18 06:00 MSE: Affect: Anxious Mood: "Afraid" of not getting sleep TP: Linear, perseverative about sleep issues TC: Denies SI/HI, no paranoia, extremely fearful of not getting sleep Insight/Judgment: Poor - Time Spent With Patient Time Spent With Patient: 35" - Pending Discharge Pending Discharge Within 24 Hours: No Pending Discharge Within 48 Hours: No ICD10 Worksheet Patient Problems: Problems Problem Status Onset Severe major depression Acute
[2018-09-26] MEDS ORDERED: MELATONIN 3 MG TAB PO PRN (17:16)
[2018-09-26] MEDS: RANITIDINE HCL 150 MG/10 ML UDCUP PO SCH (20:28)
[2018-09-26] MEDS: MIRTAZAPINE 15 MG TAB PO SCH (20:28)
[2018-09-26] MEDS ORDERED: RANITIDINE SYRUP 15 MG/1 ML UDSYR PO SCH (21:00)
[2018-09-26] MEDS: OLANZapine DISINTEGR 10 MG TAB PO PRN (21:16)
[2018-09-27] MEDS: RANITIDINE HCL 150 MG/10 ML UDCUP PO SCH ×3 (08:28→19:55)
[2018-09-27] MEDS: VENLAFAXINE XR 37.5 MG CAP PO SCH (08:28)
[2018-09-27] MEDS: LEVOTHYROXINE 88 MCG TAB PO SCH (08:29)
[2018-09-27] MEDS: AQUAPHOR OINTMENT 3.5 OZ JAR TP SCH ×3 (08:59→19:55)
--- NOTE | 2018-09-27 13:51 | ASMTCMCOM ---
CM Note CM Note Notes: The patient has decreased tremulousness. According to [facility] staff, she refused PRN medications after complaining of anxiety due to the fear of "being on too many medications." Additionally, she was unable to employ alternative coping strategies. She patient seemed to have difficulty concentrating including taking two hours to complete her menu for the next day. Date Signed: 09/27/2018 01:50 PM Electronically Signed By:Pepper Spencer
--- NOTE | 2018-09-27 17:05 | SOAPPROG ---
SOAP Progress Note Assessment/Plan: Assessment: 53 yo with prior h/o depression and anxiety. Came to ED b/c she has been sitting at home "doing nothing," not eating, not sleeping, not working. Plan: 09/26/18 17:06 1. Patient admits she has not been taking meds for several days. She understands she will need to restart meds at lower dose to avoid SE's. She agreed to trial of Remeron which was recommended by [facility], however, patient states the medication "didn't help" her sleep better last night. MD explained there may be many reasons patient had difficulty sleeping in hospital and may take longer than one night to notice improvement with new medication. Patient states she wants to be on Ambien which her PCP had been prescribing PRN. MD agreed to add Ambien, but at lower dose (5mg) since she is also taking Remeron and has melatonin, Olanzapine and Ativan available PRN. 2. MD spent a great deal of time counseling patient on causes and treatments for insomnia. Patient admits she is "terrified" of not getting enough sleep. She states she obsessively worries about it all the time, which interferes with her ability to do the things most likely to promote good sleep, such as eat healthy foods, exercise, maintain supportive relationships and avoid isolating at home. MD discussed options such as CBT and CBT for insomnia as well as MBSR and other forms of therapy. Patient said she will talk to providers at [facility] about doing one of these treatments as part of her therapy and possibly going to a support group. MD stressed the effectiveness of CBTi for insomnia, and suggested the [facility] for additional services. 3. Patient denies any c/o SE's from re-starting medications. 4. Patient will f/u with Dr. De La Rosa and [facility] providers after d/c. 09/27/18 17:01 1. Patient complains body feels "weird" today, but denies any specific physical complaints. No SE's from meds. 2. Patient claims she doesn't like the way Remeron makes her feel, and would prefer not to take it. MD agreed to d/c Remeron. Patient has other meds to help with sleep, but she declined to take Ambien last night. 3. Patient slept 7 hrs last night after being "terrified" in afternoon she wouldn't sleep at all. MD tried to point this out, but patient offered all kinds of reasons why it didn't make her feel any better. 4. Patient agrees to sign in voluntarily when hold expires. 5. Patient will f/u with Dr. De La Rosa at [facility]. Subjective: Patient stated that her body felt "weird" today. She denied any specific physical complaint and said she feels "like a ghost." She reported feeling "anxious" but denied feeling depressed. She told RN this afternoon she didn't want to take any PRN meds for anxiety b/c "I'm taking too meds already." Patient spent > 30 min yesterday telling MD how "anxious" and "terrified" she was that she wouldn't get "any sleep" while in hospital. When MD pointed out that patient actually slept 7 hrs last night, and that she didn't need Ambien ( which she declined after it was ordered PRN), she was not satisfied. She said she still felt bad despite getting 7 hrs sleep. Patient said she didn't like the way Mirtazapine made her feel, but could not be more specific than describing the feeling as "weird." MD agreed to d/d Remeron. Objective: Vital Signs Temp Pulse Resp BP Pulse Ox 36.7 C 73 16 163/85 H 98 09/27/18 06:00 09/27/18 06:00 09/27/18 06:00 09/27/18 06:00 09/27/18 06:00 MSE: Affect: Anxious Mood: "Weird" TP: Tangential, disorganized TC: Denies any SI/HI Insight/Judgment: Poor - Time Spent With Patient Time Spent With Patient: 15" - Pending Discharge Pending Discharge Within 24 Hours: No Pending Discharge Within 48 Hours: No ICD10 Worksheet Patient Problems: Problems Problem Status Onset Severe major depression Acute
[2018-09-27] MEDS: OLANZapine DISINTEGR 10 MG TAB PO PRN (21:59)
[2018-09-28] MEDS: VENLAFAXINE XR 150 MG CAP PO SCH (08:35)
[2018-09-28] MEDS: LEVOTHYROXINE 88 MCG TAB PO SCH (08:38)
[2018-09-28] MEDS: AQUAPHOR OINTMENT 3.5 OZ JAR TP SCH ×2 (08:38→20:29)
--- NOTE | 2018-09-28 08:49 | SOAPPROG ---
SOAP Progress Note Assessment/Plan: Assessment: Major Depressive Disorder, Severe, With Anxious Distress. Slight improvement noted. Patient reports not feeling safe to discharge and could benefit from another day of observation for safety and medication adjustment (see subjective/ objective note). Patient could benefit from continued inpatient hospitalization for crisis stabilization, safety, and medication evaluation. Plan: 1. Psychotropic medications: After reviewing options, risks, and benefits patient agrees to continue current medications and agrees to Gabapentin 300 mg TID for anxiety. No medication changes at this time as more time is needed to determine ongoing tolerability and efficacy. Plan is to continue to observe patient for response and side effects from medications, and ongoing monitoring and evaluation. 2. Review with patient informed consent and recommendations for psychotropic medication treatment listed below 3. Labs: no additional labs at this time 4. Therapy: continue milieu and group therapy 5. Further investigation including gathering information from patients relatives and review of past case records to inform treatment plan. 6. Safety/Wellness plan and follow-up outpatient appointments to be established prior to discharge. Next steps are for patient to meet with intensive care unit registered nurse to plan a safe discharge plan and establish outpatient services for ongoing treatment. 7. Confer with inpatient treatment team regarding treatment plan. 8. Psychosocial stressors addressed through trimming caser 9. Legal status: voluntary 10. Consider discharge this week if patient is in stable condition, safe, and has a safe discharge plan. PSYCHOTROPIC MEDICATION TREATMENT INFORMED CONSENT and RECOMMENDATIONS: Review nature of condition, diagnosis, and prognosis. Review nature and purpose of psychotropic medication treatment. Review type of psychotropic medications being ordered. Review risk and benefits of psychotropic medication treatment. Review probable length of time patient will need to take medications. Review risk and benefits of not undergoing psychotropic medication treatment. Review alternative treatments to psychotropic medications. Review psychotropic medications contraindications, drug-drug interactions, side effects, and importance of reporting any side effects to a psychiatric provider or nurse during inpatient hospitalization, and upon discharge to patients psychiatric outpatient provider, primary care provider, or other health daycare worker. Review importance of asking a nurse, psychiatric provider, or primary care provider any questions or problems concerning the psychotropic medications. Verify patient understands the information that has been provided, and understands, accepts, and agrees to psychotropic medications. Review patients safety plan and importance of patient to report to staff while hospitalized if patient is ever a danger to self/others, or unable to care for self, and upon discharge, the importance for patient to contact [facility] or 911, or go to the nearest emergency room, if patient is ever a danger to self/others, or unable to care for self. Recommend that upon discharge patient establish medication management treatment with a psychiatric provider, establishes routine therapy appointments, and follow-up with primary care provider. Verify patient understands and agrees to these recommendations. 09/28/18 08:50 Subjective: Following up with patient for evaluation of depression, anxiety, and safety. Patient reports, "Weekend was difficult. Lots of anxiety about what I came in for in the first place. Not really sure if the issues have been addressed about why was anxious. Would really like to get anxiety under control to feel better about returning home." Patient expresses the following psychiatric symptoms severe anxiety. Patient reports taking medications as prescribed, and describes response to medications as fair. Patient does not report undesirable side effects from the medications, and agrees to continue current medications. Patient agrees to increase Effexor XR to 150 mg po QD. Patient reports prior dose 225 mg po QD prior to admission, and reports not taking for several days prior to admission. Patient reports tolerating 225 mg po QD with no report of side effects. Patient agrees to Gabapentin 300 mg po TID for anxiety. Patient reports taking 300 mg po QD for fibromyalgia in the past. Patient describes getting 8 hours of sleep, and reports she slept on and off throughout the night. Objective: Vital Signs Temp Pulse Resp BP Pulse Ox 37.2 C 104 H 14 153/89 H 96 09/28/18 06:00 09/28/18 06:00 09/28/18 06:00 09/28/18 06:00 09/28/18 06:00 NURSING REPORT: Consulted with nursing for update on patients progress in treatment. Nurses report patient is engaged in treatment, is attending groups, slept 8 hours, expresses the following psychiatric symptoms: severe anxiety, exhibits the following psychiatric symptoms: flat affect; is eating all meals, is agreeable to medications and taking as prescribed with no report of side effects, with no s/s of EPS/akathisia, and denies SI/HI, denies A/V hallucinations, and denies delusions. MSE: The patient is a well-nourished female looking stated chronological age. Attire is appropriate and dress is hospital garb. Grooming status is appropriate. Ambulation is independent. Gait is normal and coordinated. Posture is normal and relaxed. Eye contact is appropriate. Motor activity is appropriate with purposeful, organized, coordinated movements; with no involuntary movements. Attitude is cooperative and friendly. Patient is attentive and relates well to this interviewer. Language production is spontaneous. Rate is normal. Latency of response is normal. Articulation is clear. Patient reports mood as anxious with congruent affect. Patients thought process is linear and logical, and signs of thought disorder. Patient does report suicidal ideation; denies homicidal thoughts, ideas, or plans. Patient denies auditory hallucinations, denies visual hallucinations. Patient denies delusions. Patient does not appear to be attending to internal stimuli. Patients attention and concentration are fair. Patient is oriented to person , place, time, and situation. Patients insight and judgement are poor. - Time Spent With Patient Time Spent With Patient: 15 minutes, met with patient individually. - Pending Discharge Pending Discharge Within 24 Hours: No Pending Discharge Within 48 Hours: No ICD10 Worksheet Patient Problems: Problems Problem Status Onset Severe major depression Acute
[2018-09-28] MEDS: RANITIDINE HCL 150 MG/10 ML UDCUP PO SCH ×2 (11:44→20:29)
[2018-09-28] MEDS: GABAPENTIN 300 MG CAP PO SCH ×3 (11:44→20:58)
[2018-09-28] MEDS: OLANZapine DISINTEGR 10 MG TAB PO PRN (20:59)
--- NOTE | 2018-09-29 08:10 | SOAPPROG ---
SOAP Progress Note Assessment/Plan: Assessment: Major Depressive Disorder, Severe, With Anxious Distress. Slight improvement noted. Patient reports not feeling safe to discharge and could benefit from another day of observation for safety and medication adjustment (see subjective/ objective note). Patient could benefit from continued inpatient hospitalization for crisis stabilization, safety, and medication evaluation. Plan: 1. Psychotropic medications: After reviewing options, risks, and benefits patient agrees to continue current medications. No medication changes at this time as more time is needed to determine ongoing tolerability and efficacy. Plan is to continue to observe patient for response and side effects from medications, and ongoing monitoring and evaluation. 2. Review with patient informed consent and recommendations for psychotropic medication treatment listed below 3. Labs: no additional labs at this time 4. Therapy: continue milieu and group therapy 5. Further investigation including gathering information from patients relatives and review of past case records to inform treatment plan. 6. Safety/Wellness plan and follow-up outpatient appointments to be established prior to discharge. Next steps are for patient to meet with personal caregiver to plan a safe discharge plan and establish outpatient services for ongoing treatment. 7. Confer with inpatient treatment team regarding treatment plan. 8. Psychosocial stressors addressed through case finisher 9. Legal status: voluntary 10. Consider discharge Friday if patient is in stable condition, safe, and has a safe discharge plan. PSYCHOTROPIC MEDICATION TREATMENT INFORMED CONSENT and RECOMMENDATIONS: Review nature of condition, diagnosis, and prognosis. Review nature and purpose of psychotropic medication treatment. Review type of psychotropic medications being ordered. Review risk and benefits of psychotropic medication treatment. Review probable length of time patient will need to take medications. Review risk and benefits of not undergoing psychotropic medication treatment. Review alternative treatments to psychotropic medications. Review psychotropic medications contraindications, drug-drug interactions, side effects, and importance of reporting any side effects to a psychiatric provider or nurse during inpatient hospitalization, and upon discharge to patients psychiatric outpatient provider, primary care provider, or other health career services coordinator. Review importance of asking a nurse, psychiatric provider, or primary care provider any questions or problems concerning the psychotropic medications. Verify patient understands the information that has been provided, and understands, accepts, and agrees to psychotropic medications. Review patients safety plan and importance of patient to report to staff while hospitalized if patient is ever a danger to self/others, or unable to care for self, and upon discharge, the importance for patient to contact [facility] or [facility], or go to the nearest emergency room, if patient is ever a danger to self/others, or unable to care for self. Recommend that upon discharge patient establish medication management treatment with a psychiatric provider, establishes routine therapy appointments, and follow-up with primary care provider. Verify patient understands and agrees to these recommendations. 09/29/18 08:10 Subjective: Following up with patient for evaluation of depression, anxiety, and safety. Patient reports, "Don't feel well. Depressed and frightened. Just don't feel like myself." Patient reports she doesn't feel safe to discharge. Patient expresses the following psychiatric symptoms severe depression (8/10) and moderate anxiety (6/10). Patient reports taking medications as prescribed, and describes response to medications as fair. Patient does not report undesirable side effects from the medications, and agrees to continue current medications. Patient reports some improvement in anxiety with Gabapentin. Patient describes getting 8 hours of sleep, and reports she slept on and off throughout the night. Objective: Vital Signs Temp Pulse Resp BP Pulse Ox 36.4 C 96 18 162/74 H 96 09/29/18 06:00 09/29/18 06:00 09/29/18 06:00 09/29/18 06:00 09/29/18 06:00 NURSING REPORT: Consulted with nursing for update on patients progress in treatment. Nurses report patient is engaged in treatment, is attending groups, slept 8 hours, expresses the following psychiatric symptoms: severe depression, exhibits the following psychiatric symptoms: flat affect; is eating all meals, is agreeable to medications and taking as prescribed with no report of side effects, with no s/s of EPS/akathisia, and denies SI/HI, denies A/V hallucinations, and denies delusions. MSE: The patient is a well-nourished female looking stated chronological age. Attire is appropriate and dress is hospital garb. Grooming status is appropriate. Ambulation is independent. Gait is normal and coordinated. Posture is normal and relaxed. Eye contact is appropriate. Motor activity is appropriate with purposeful, organized, coordinated movements; with no involuntary movements. Attitude is cooperative and friendly. Patient is attentive and relates well to this interviewer. Language production is spontaneous. Rate is normal. Latency of response is normal. Articulation is clear. Patient reports mood as depressed with congruent affect. Patients thought process is linear and logical with no signs of thought disorder. Patient does report suicidal ideation; denies homicidal thoughts, ideas, or plans. Patient denies auditory hallucinations, denies visual hallucinations. Patient denies delusions. Patient does not appear to be attending to internal stimuli. Patients attention and concentration are fair. Patient is oriented to person, place, time, and situation. Patients insight and judgement are poor. - Time Spent With Patient Time Spent With Patient: 15 minutes, met with patient individually. - Pending Discharge Pending Discharge Within 24 Hours: Yes Pending Discharge Within 48 Hours: No Pending Discharge Date: 09/30/18 Pending Discharge Time: 11:00 ICD10 Worksheet Patient Problems: Problems Problem Status Onset Severe major depression Acute
[2018-09-29] MEDS: RANITIDINE HCL 150 MG/10 ML UDCUP PO SCH ×3 (08:32→20:50)
[2018-09-29] MEDS: VENLAFAXINE XR 150 MG CAP PO SCH (08:32)
[2018-09-29] MEDS: GABAPENTIN 300 MG CAP PO SCH ×3 (08:32→20:50)
[2018-09-29] MEDS: LORazepam 0.5 MG TAB PO PRN (08:32)
[2018-09-29] MEDS: LEVOTHYROXINE 88 MCG TAB PO SCH (08:33)
[2018-09-29] MEDS: AQUAPHOR OINTMENT 3.5 OZ JAR TP SCH ×2 (08:41→20:55)
[2018-09-29] MEDS ORDERED: LORazepam 0.5 MG TAB PO PRN (09:40)
--- NOTE | 2018-09-29 10:09 | ASMTCMCOM ---
CM Note CM Note Notes: CC checked in with ct. who complained that she is not doing well. Ct. presented with very flat affect and was shaking and appearing very anxious. Ct. reported that she doesn't "feel right". She said that she over sleeps and is shaky on her feet. Discussed with ct. services at [facility]. She is currently only seeing Dr. De La Rosa. Let her know that if she needs additional services from them we can make a recommendation or she can discuss it with him on her next appointment. Date Signed: 09/29/2018 10:08 AM Electronically Signed By:Maribeth Lopez
[2018-09-29] MEDS ORDERED: OLANZapine 5 MG TAB PO SCH (21:00)
[2018-09-30 06:32] VITALS: BP 156/72
[2018-09-30] MEDS: RANITIDINE HCL 150 MG/10 ML UDCUP PO SCH (09:32)
[2018-09-30] MEDS: GABAPENTIN 300 MG CAP PO SCH (09:32)
[2018-09-30] MEDS: VENLAFAXINE XR 150 MG CAP PO SCH (09:32)
[2018-09-30] MEDS: AQUAPHOR OINTMENT 3.5 OZ JAR TP SCH (09:35)
[2018-09-30] MEDS: LEVOTHYROXINE 88 MCG TAB PO SCH (10:04)
--- NOTE | 2018-09-30 11:15 | ASMTBHDC ---
Notes Note: Notes: CC was able to confirm client's next appt with out side providers: Follow Up: [facility] [address] [place], [address] O# [phone] Next Appt: w/Mario Alberto Cade at 10 a.m., check in at 9:45 a.m., [address] [facility]. Next (unconfirmed) appointment with Dr. De La Rosa: November 05. Date Signed: 09/30/2018 11:14 AM Electronically Signed By:Timothy Quijano
--- NOTE | 2018-09-30 13:05 | BDS ---
REASON FOR ADMISSION: From the ED note dated 09/24/2018, the patient presented to the emergency room with severe depression. Reports onset of depression in July 2018, and has been gradually increasing since. The patient reported sitting at home doing nothing due to depression, not eating, not drinking and not sleeping. The patient reported not taking her medications. The patient was admitted involuntarily on an M1 hold due to being a danger to herself. The patient was admitted for safety, crisis stabilization, and medication management. ADMITTING DIAGNOSIS: Major depressive disorder, severe. ADMISSION PHYSICAL EXAM: The patient was seen for an Internal Medicine consultation on 09/25/2018, for medical clearance for inpatient psychiatric hospitalization and treatment. The patient was medically cleared for inpatient psychiatric hospitalization and treatment. For further details, please refer to consultation note dated 09/25/2018. ADMISSION LABS: 1. CBC from 09/24/2018, within normal limits, except red blood cells were elevated at 5.53, hemoglobin was elevated at 16.5, and hematocrit was elevated at 48.4. Eosinophils were low at 0.1. Absolute eosinophils were low at 0.01. 2. BMP within normal limits, except BUN was elevated at 32. 3. Hemoglobin A1c within normal limits at 5.2 on 09/25/2018. 4. Liver function from 09/25/2018, within normal limits, except total protein was elevated at 8.6, and albumin was elevated at 5.1. 5. Lipid panel from 09/25/2018, within normal limits, except LDL cholesterol calculated was elevated at 102. HDL cholesterol was elevated at 86. 6. TSH from 09/25/2018, within normal limits at 1.720. 7. Toxicology screen from 09/24/2018, was negative for all substances screened and negative for ethyl alcohol. MAJOR PROCEDURES OR TESTS: None. HOSPITAL COURSE: The most prominent symptoms and behaviors while the patient was here were reports of severe depression and anxiety. Treatment modalities utilized were milieu and group therapy. Effexor XR was re-started as the patient stated she was not taking her current dose of 225 mg p.o. daily prior to admission. Therefore, was restarted at 75 mg p.o. daily and was titrated throughout the course of the hospitalization to 225 mg p.o. daily, was tolerated with no report of side effects and with a good response. Gabapentin 300 mg p.o. t.i.d. was started to target anxiety symptoms, was tolerated with no report of side effects and with good response. Zyprexa 5 mg p.o. q.h.s. was continued to target depression symptoms, was tolerated with no report of side effects and with good response. Synthroid 88 mcg p.o. daily at 10 a.m. was continued. The patient has improved considerably, with no signs of psychiatric symptoms and no psychiatric symptoms expressed at time of discharge. Patient reports she has improved since admission, states to be in stable condition, feels safe to discharge, and she contracts for safety. Patient's response to treatment was good. There were no adverse or unexpected results of treatment. The patient was safe throughout her stay, active in treatment, engaged in groups , and was appropriate with staff and other patients. The patient met with the treatment team prior to discharge to assess readiness to discharge and review discharge plan. The treatment team consensus is the patient is in stable condition, has a safe discharge plan, and is ready to discharge today. CONDITION ON DISCHARGE: Patient is in stable condition and is no longer a danger to self or others, and is not gravely disabled due to mental illness. Patient is no longer in need of inpatient level of care, and can be safely and effectively treated within the community. The patients level of risk at time of discharge is low. MSE: The patient is casually dressed and with good hygiene , and looks stated age. Patient is sitting, posture is upright, and position is relaxed. Patient appears awake, alert, and responds appropriately and reasonably during interview. Patient is engaged, relates well to interviewer, and emotional facial expression is appropriate to situation and changes appropriately with topic. Patient is cooperative, makes comfortable eye contact , and movements are voluntary, deliberate, coordinated, and smooth and even with no inappropriate movements. Patient makes laryngeal sounds effortlessly and shares conversation appropriately; pace of conversation is appropriate, and stream of talking is fluent; articulation is clear and understandable; word choice is effortless and appropriate for education level; completes sentences, occasionally pausing to think; rate and volume are appropriate for interview and setting. Patient reports mood as euthymic. Patients affect is stable with full variable range, congruent with mood, and appropriate to speech and circumstances. Patient has linear and logical thinking, with no loose associations, tangential thought, thought blocking, concrete thinking, or any other signs of formal thought disorder. Patient denies suicidal and homicidal ideation, and denies hallucinations and delusions. Patient appears to be a reliable historian with sound judgement and good insight into current condition. Patient has no apparent dysfunction in recent or remote memory noted , and no evidence of gross cognitive dysfunction noted at any point during the interview. DISCHARGE DIAGNOSIS: Major depressive disorder, severe. CURRENT MEDICATIONS: After reviewing options, risks and benefits with the patient, the patient agrees to continue the followin. Gabapentin 300 mg p.o. t.i.d. 2. Synthroid 88 mcg p.o. daily at 10 a.m. 3. Zyprexa 5 mg p.o. q.h.s. 4. Effexor XR 225 mg p.o. daily. The patient requests prescriptions for Effexor XR, Zyprexa and gabapentin at time of discharge. Prescriptions for 30 days for these medications are provided. Prescriptions are reviewed with the patient at time of discharge to ensure accuracy and patient understanding. DISPOSITION: The patient left hospital independently and voluntarily with her friends and plans to return to her home in [place] today. FOLLOWUP: food safety coordinator reports the appropriate outpatient follow-up services have been established and outpatient appointments have been scheduled. The patient received written instructions with times and dates of outpatient follow-up appointments. The following follow-up recommendations were provided to the patient at discharge: Continue psychotropic medications as prescribed and attend appointments as scheduled. Report any side effects to a psychiatric outpatient provider, a primary care provider, or other health director of patient care. Address any questions or problems concerning the psychotropic medications with a psychiatric outpatient provider, a primary care provider, or other health director of patient care. Contact [facility] or [facility], or go to the nearest emergency room, if you are ever a danger to yourself/others, or unable to care for yourself. As soon as possible, establish a routine medication management treatment with a psychiatric provider, establish routine therapy appointments, and follow-up with a primary care provider. LEGAL COURSE: The patient was admitted on an M1 hold for involuntary psychiatric hospitalization. The patient became voluntary during her stay, and patient discharged today independently and voluntarily. ATTITUDE AT TIME OF DISCHARGE: The patients attitude was positive at time of discharge, and patient reports looking forward to discharging today. The patient reports she feels safe to discharge, is no longer a danger to herself or others, is in stable condition, and contracts for safety. Patient states she will continue medications as prescribed, and establish medication management treatment with an outpatient provider after discharge. Patient reports she understands the information that has been provided to her, and she understands, accepts, and agrees to psychotropic medications. Patient describes internal protective factors as the coping skills she has learned while hospitalized here, and she plans to continue to practice these coping skills after discharge. LABS AND STUDIES: There were no pending labs or studies at time of discharge. ADVANCE DIRECTIVES: There were no advance directives on file, and patient was full code during this hospitalization. The following psychotropic medication treatment informed consent and recommendations were provided to the patient at time of discharge. Patient reports she understands, accepts, and agrees to the information that has been provided. PSYCHOTROPIC MEDICATION TREATMENT INFORMED CONSENT and RECOMMENDATIONS: Review nature of condition, diagnosis, and prognosis. Review nature and purpose of psychotropic medication treatment. Review type of psychotropic medications being prescribed. Review risk and benefits of psychotropic medication treatment. Review probable length of time will need to take medications. Review risk and benefits of not undergoing psychotropic medication treatment. Review alternative treatments to psychotropic medications. Review psychotropic medications contraindications, side effects, and importance of reporting any side effects to a psychiatric provider, primary care provider, or other health director of patient care. Review importance of her asking a psychiatric provider or primary care provider any questions or problems concerning the psychotropic medications. Review importance of reporting to a psychiatric provider, primary care provider, or other health director of patient care if she plans to or becomes . Review safety plan and the importance to contact [facility] or [facility] , or go to the nearest emergency room, if ever a danger to yourself/others, or unable to care for yourself. Recommend upon discharge to establish routine medication management treatment with a psychiatric provider, establish routine therapy appointments, and follow-up with a primary care provider. Verify patient understands, accepts, and agrees to the information that has been provided. SUICIDE ASSESSMENT FIVE-STEP EVALUATION AND TRIAGE (1) RISK FACTORS: (a) Suicidal behavior: no history of attempts (b) Current/past psychiatric disorders: Major Depressive Disorder (c) Kessler symptoms: none expressed or exhibited at time of discharge (d) Family history: none (e) Precipitants/Stressors/Interpersonal: none (f) Change in treatment: discharge from psychiatric hospital (g) Access to firearms: none (2) PROTECTIVE FACTORS: (a) Internal: coping skills learned while hospitalized (b) External: family, friends, and future (3) SUICIDAL INQUIRY: (a) Ideation: none (b) Plan: none (c) Behaviors: none; patient was safe throughout stay with no suicidal or parasuicidal behaviors (d) Intent: none (4) RISK LEVEL: Low: modifiable risk factors, strong protective factors; no suicidal or self-injurious ideation. Intervention: treatment plan to reduce symptoms including medications and therapy, provided emergency/crisis numbers, and established follow-up plan. /[id number]/MODL MTDD
== END 2018-09-30 12:23 | disposition home or self-care (01) | DRG 885 ==
LOC: BBEH 09-25 11:01
PROVIDERS: ADMIT Registered Nurse; ATTEND Registered Nurse
DX: F33.3 Major depressive disorder, recurrent, severe with psychotic symptoms (principal); T43.506A Underdosing of unspecified antipsychotics and neuroleptics, initial encounter; K59.00 Constipation, unspecified; K58.9 Irritable bowel syndrome, unspecified; E03.9 Hypothyroidism, unspecified; G89.29 Other chronic pain; E86.0 Dehydration
CPT/HCPCS: 80305; G0480

== ENCOUNTER 2018-10-12 11:37 | Inpatient (IN) | payer OTHER, MEDICAID ==
--- NOTE | 2018-10-12 11:41 | EDPHY ---
HPI/HX/ROS/PE/MDM Narrative: CHIEF COMPLAINT: Polypharmacy OD HISTORY OF PRESENT ILLNESS: The patient is a 53 y/o female with a history of depression and bipolar disorder arriving emergently via EMS for a presumed polypharmacy OD. Somewhat unclear who called EMS, but on their arrival they found the patient in her home , unresponsive ,with snoring respirations, pale, and hypertensive. They believe this patient overdosed on her Benzo's and SSRI's. While en route to the emergency department EMS noticed that the patient has shallow respirations so they placed an NPA and started to assist her ventilations with a BVM. The patient then became mildly combative so they gave her a total of 1mg IV Versed. They also gave her Narcan with minimal to no effect. Of note, on review of the patient's medications she is not on any benzodiazepines. She does take gabapentin, olanzepine, and Effexor. REVIEW OF SYSTEMS: Unable to obtain secondary to patient's mental status. PAST MEDICAL HISTORY: Depression, bipolar, acid reflux, fibromyalgia, multiple personality disorder, endometriosis, IBS, hypothyroid SOCIAL HISTORY: Lives in [place], , disabled VITAL SIGNS: Reviewed by me. 115/87, 90, respirations at 10. Temperature 32.9 degrees rectally GENERAL: Had generalized tremors initially. HEENT: Atraumatic. Eyes: Pupils are 2mm and minimally responsive. No icterus, no injection. No dysconjugate gaze noted. Mouth: moist mucous membranes. Patient's jaw was clenched. Diminished gag reflex. No erythema or lesions. Neck: supple with no adenopathy. LUNGS: Breath sounds rhonchus throughout. No wheezes or rales. CARDIAC: Regular rate and rhythm, no rubs, murmurs or gallops. ABDOMEN: Soft, nontender, nondistended, bowel sounds normal. BACK: No trauma noted. EXTREMITIES: No trauma. No edema. Moving all extremities spontaneously. NEURO: Somnolent, does not follow commands, not verbally responsive. Does not respond to painful stimuli purposefully. Sustained clonus bilateral lower extremities. SKIN: Warm and dry, no rash. PSYCHIATRIC: Somnolent and not answering questions. Portions of this note were transcribed by a biomedical service engineer. I personally performed a history, physical exam, medical decision making, and confirmed accuracy of information the transcribed note. ED Course: The patient is a 53 y/o female with a history of depression and bipolar disorder arriving emergently via EMS for a possible polypharmacy OD. On exam she is somnolent and not responding to painful stimuli purposefully. She also has sustained clonus and had generalized tremors initially. No lead pipe rigidity noted. Her pupils are also 2mm and minimally responsive. She has rhonchus breath sounds throughout. She is not protecting her airway. 1138: I met EMS upon arrival. 1148: Procedure: Rapid sequence intubation. Indication for the procedure was airway protection. The patient was preoxygenated with 100% oxygen by BV. The patient was given the following IV medications: 20mg IV Etomidate and 100mg IV succinylcholine. The patient was orally endotracheally intubated under direct visualization with a 8.0 ETT. Tracheal intubation was confirmed with misting on the tube; breath sounds were auscultated equally bilaterally; appropriate color change with [place] End Tidal CO2 detector. Chest X-ray shows ETT somewhat deep, ET tube was repositioned. The procedure was performed by myself, Dr. Balderrama. 1154: 12-LEAD EKG: Please see the full report in [facility]. My interpretation: Sinus rhythm with a rate of 73, borderline prolonged QT interval. 1205: I reviewed patients chest x-ray; patient's ET tube pulled back [address] scan of the head was negative for any acute findings. 1300: I consulted with the hospitalist service, Dr. Connell accepts admission of this patient. 1305: Reassessed patient, her vitals remain stable and her is also at bedside now. 1310: I spoke with Poison Control regarding this patient. Her case number is # [id number]. Recommendations: for QT prolongation, maximize patient's magnesium, phosphorus, and potassium. For QRS prolongation, administer sodium bicarbonate. Additional labs including magnesium, salicylates, and Tylenol ordered. MDM: After the history was obtained and physical exam performed, the following differential for the patient's altered mental status was considered included but was not limited to hypoglycemia, electrolyte disturbances, intracranial hemorrhage, tumor, drug or alcohol intoxication, stroke, or TIA. - Data Points Imaging Results: Imaging Impressions Chest X-Ray 10/12/18 11:52 Impression: 1. No acute cardiopulmonary process. 2. Endotracheal tube is in the proximal right mainstem bronchus. This tube has been intervally withdrawn. Findings and recommendations discussed with Jerrica Balderrama MD at 1220 hour, 10/12/2018. Head CT 10/12/18 11:53 Impression: There is no acute abnormality identified on this unenhanced CT evaluation. If there is further clinical concern regarding the patient's symptoms, MR imaging is suggested, if not otherwise contraindicated. Findings were discussed with Jerrica Balderrama MD at 13:13, on 10/12/2018. Imaging: I viewed and interpreted images myself Laboratory Results: Laboratory Results 10/12/18 11:55 10/12/18 11:55 10/12/18 10/12/18 10/12/18 12:34 12:09 11:58 WBC RBC Hgb POC Hgb 16.0 gm/dL gm/dL (12.6-16.3) Hct POC Hct 47 % % (38-47) MCV MCH MCHC RDW Plt Count MPV Neut % (Auto) Lymph % (Auto) Greer % (Auto) Eos % (Auto) Baso % (Auto) Nucleat RBC Rel Count Absolute Neuts (auto) Absolute Lymphs (auto) Absolute Monos (auto) Absolute Eos (auto) Absolute Basos (auto) Absolute Nucleated RBC Immature Gran % Immature Gran # Puncture Site RIGHT RADIAL Patient Temperature 33.4 DEGREES DEGREES pCO2 41 mmHg H mmHg (34-38) pO2 371 mmHg H mmHg (65-75) Total CO2 21 mEq/L L mEq/L (23-27) ABG pH 7.27 L (7.35-7.45) ABG PO2/FiO2 Ratio 371 RATIO RATIO ABG HCO3 19 mEq/L L mEq/L (22-26) ABG O2 Saturation 99 % H % (92-95) ABG Base Excess -8.6 mEq/L L mEq/L (-2.5-2.5) O2 Concentration % 100 % % (0-100) Actual Respiration Rate 24 Set Respiration Rate 16 SIMV YES Inspiratory Time 0.5 SECS SECS Tidal Volume 350 End Tidal CO2 36 PEEP 5 Peak Inspir Pressure 18 Pressure Support 7 POC Sodium 141 mEq/L mEq/L (135-145) Sodium POC Potassium 5.7 mEq/L H mEq/L (3.3-5.0) Potassium POC Chloride 106 mEq/L mEq/L (97-110) Chloride Carbon Dioxide Anion Gap POC BUN 24 mg/dL H mg/dL (7-23) BUN Creatinine POC Creatinine 1.3 mg/dL H mg/dL (0.6-1.0) Estimated GFR Glucose POC Glucose 152 mg/dL H mg/dL (70-100) Calcium Total Bilirubin Conjugated Bilirubin Unconjugated Bilirubin AST ALT Alkaline Phosphatase Troponin I Total Protein Albumin Urine Opiates Screen NEGATIVE (NEGATIVE) Urine Barbiturates NEGATIVE (NEGATIVE) Ur Phencyclidine Scrn NEGATIVE (NEGATIVE) Ur Amphetamine Screen NEGATIVE (NEGATIVE) U Benzodiazepines Scrn NEGATIVE (NEGATIVE) Urine Cocaine Screen NEGATIVE (NEGATIVE) U Marijuana (THC) Screen NEGATIVE (NEGATIVE) 10/12/18 10/12/18 10/12/18 11:55 11:55 11:55 WBC 15.95 10^3/uL H 10^3/uL (3.80-9.50) RBC 4.99 10^6/uL 10^6/uL (4.18-5.33) Hgb 14.9 g/dL g/dL (12.6-16.3) POC Hgb Hct 45.8 % % (38.0-47.0) POC Hct MCV 91.8 fL fL (81.5-99.8) MCH 29.9 pg pg (27.9-34.1) MCHC 32.5 g/dL g/dL (32.4-36.7) RDW 12.9 % % (11.5-15.2) Plt Count 261 10^3/uL 10^3/uL (150-400) MPV 10.2 fL fL (8.7-11.7) Neut % (Auto) 87.0 % H % (39.3-74.2) Lymph % (Auto) 7.5 % L % (15.0-45.0) Greer % (Auto) 4.5 % % (4.5-13.0) Eos % (Auto) 0.1 % L % (0.6-7.6) Baso % (Auto) 0.3 % % (0.3-1.7) Nucleat RBC Rel Count 0.0 % % (0.0-0.2) Absolute Neuts (auto) 13.89 10^3/uL H 10^3/uL (1.70-6.50) Absolute Lymphs (auto) 1.19 10^3/uL 10^3/uL (1.00-3.00) Absolute Monos (auto) 0.71 10^3/uL 10^3/uL (0.30-0.80) Absolute Eos (auto) 0.02 10^3/uL L 10^3/uL (0.03-0.40) Absolute Basos (auto) 0.04 10^3/uL 10^3/uL (0.02-0.10) Absolute Nucleated RBC 0.00 10^3/uL 10^3/uL (0-0.01) Immature Gran % 0.6 % % (0.0-1.1) Immature Gran # 0.10 10^3/uL 10^3/uL (0.00-0.10) Puncture Site Patient Temperature pCO2 pO2 Total CO2 ABG pH ABG PO2/FiO2 Ratio ABG HCO3 ABG O2 Saturation ABG Base Excess O2 Concentration % Actual Respiration Rate Set Respiration Rate SIMV Inspiratory Time Tidal Volume End Tidal CO2 PEEP Peak Inspir Pressure Pressure Support POC Sodium Sodium 139 mEq/L mEq/L (135-145) POC Potassium Potassium 5.7 mEq/L H mEq/L (3.5-5.2) POC Chloride Chloride 106 mEq/L mEq/L (97-110) Carbon Dioxide 19 mEq/l L mEq/l (22-31) Anion Gap 14 mEq/L mEq/L (6-14) POC BUN BUN 18 mg/dL mg/dL (7-23) Creatinine 1.2 mg/dL H mg/dL (0.6-1.0) POC Creatinine Estimated GFR 47 Glucose 146 mg/dL H mg/dL (70-100) POC Glucose Calcium 8.6 mg/dL mg/dL (8.5-10.4) Total Bilirubin 0.4 mg/dL mg/dL (0.1-1.4) Conjugated Bilirubin 0.4 mg/dL mg/dL (0.0-0.5) Unconjugated Bilirubin 0.0 mg/dL mg/dL (0.0-1.1) AST 81 IU/L H IU/L (14-46) ALT 43 IU/L IU/L (9-52) Alkaline Phosphatase 99 IU/L IU/L (38-126) Troponin I 0.056 ng/mL H ng/mL (0.000-0.034) Total Protein 7.2 g/dL g/dL (6.3-8.2) Albumin 4.5 g/dL g/dL (3.5-5.0) Urine Opiates Screen Urine Barbiturates Ur Phencyclidine Scrn Ur Amphetamine Screen U Benzodiazepines Scrn Urine Cocaine Screen U Marijuana (THC) Screen Medications Given: Propofol (Diprivan 10 Mg/Ml (Premix)) 100 mls @ 0 mls/hr IV CONT TANI; Titrate PRN Reason: Protocol Stop: 04/10/19 12:29 Last Admin: 10/12/18 12:22 Dose: 100 mls Sodium Chloride (Ns) 1,000 mls @ 100 mls/hr IV CONT TANI Stop: 04/10/19 13:44 Last Admin: 10/12/18 15:01 Dose: 1,000 mls Discontinued Medications Etomidate (Etomidate) 20 mg IVP EDNOW ONE Stop: 10/12/18 11:53 Last Admin: 10/12/18 11:58 Dose: 20 mg Famotidine/Sodium Chloride (Pepcid 20 Mg (Premix)) 50 mls @ 200 mls/hr IV DAILY TANI Stop: 04/10/19 13:44 Last Admin: 10/12/18 15:10 Dose: Not Given Succinylcholine Chloride (Quelicin) 100 mg IVP EDNOW ONE Stop: 10/12/18 11:53 Last Admin: 10/12/18 11:58 Dose: 100 mg Point of Care Test Results: Chemistry 10/12/18 11:58 POC Sodium 141 mEq/L mEq/L (135-145) POC Potassium 5.7 mEq/L H mEq/L (3.3-5.0) POC Chloride 106 mEq/L mEq/L (97-110) POC BUN 24 mg/dL H mg/dL (7-23) POC Creatinine 1.3 mg/dL H mg/dL (0.6-1.0) POC Glucose 152 mg/dL H mg/dL (70-100) Blood Gas/Lactic Acid-Arterial 10/12/18 12:34 Tidal Volume 350 ISTAT H&H 10/12/18 11:58 POC Hgb 16.0 gm/dL gm/dL (12.6-16.3) POC Hct 47 % % (38-47) General Time Seen by Provider: 10/12/18 11:40 Initial Vital Signs: Initial Vital Signs Temperature (C) 32.9 C L 10/12/18 11:40 Heart Rate 90 10/12/18 11:40 Respiratory Rate 10 L 10/12/18 11:40 Blood Pressure 115/87 H 10/12/18 11:40 O2 Sat (%) 100 10/12/18 11:40 O2 Delivery Mode Ventilator Allergies/Adverse Reactions: ampicillin [Ampicillin] Allergy (Intermediate, Verified 09/24/18 14:18) Hives lamotrigine [From Lamictal] Allergy (Intermediate, Verified 09/24/18 14:18) Hives Home Medications: Medication Instructions Recorded Levothyroxine [Synthroid 88 mcg 88 mcg PO DAILY10 tab 09/30/18 (*)] OLANZapine [OLANZapine (*)] 5 mg PO HS 30 Days #30 tab 09/30/18 Ranitidine HCl [Zantac] 150 mg PO BID udcup 09/30/18 Venlafaxine Xr [Effexor Xr 75MG 225 mg PO DAILY 30 Days #90 cap 09/30/18 (*)] Gabapentin [Neurontin 100 MG (*)] 300 mg PO HS 10/12/18 Ondansetron [Ondansetron Odt] 8 mg PO TID 10/12/18 Departure - Departure Disposition: [facility] Acute Clinical Impression: Respiratory depression Overdose Qualifiers: Encounter type: initial encounter Injury intent: undetermined intent Qualified Code(s): T50.904A - Poisoning by unspecified drugs, medicaments and biological substances, undetermined, initial encounter Altered mental status Qualifiers: Altered mental status type: somnolence Qualified Code(s): R40.0 - Somnolence Condition: Serious Report Scribed for: Jerrica Balderrama Report Scribed by: Capri Montes Date of Report: 10/12/18 Time of Report: 11:40
[2018-10-12] MEDS ORDERED: PROPOFOL/EMULSION 1,000 MG/100 ML BOTTLE IV ONE (11:51)
[2018-10-12] MEDS ORDERED: SUCCINYLCHOLINE CHLORIDE 200 MG/10 ML SYR IVP ONE ×3 (11:52→22:11)
[2018-10-12] MEDS ORDERED: ETOMIDATE 40 MG/20 ML INJ IVP ONE (11:52)
[2018-10-12 12:04] LABS: PLATELET COUNT 261 10^3/uL (150-400)
[2018-10-12] MEDS ORDERED: PROPOFOL/EMULSION 100 ML IV SCH ×2 (12:30→21:45)
[2018-10-12] MEDS ORDERED: LORazepam 2 MG/ML INJ IVP PRN ×2 (13:31→14:13)
[2018-10-12] MEDS ORDERED: FAMOTIDINE 20 MG/NACL 50 ML IV SCH ×4 (13:45→22:00)
[2018-10-12] MEDS ORDERED: NS 1,000 ML IV SCH (13:45)
[2018-10-12] MEDS: NS 1,000 ML IV SCH ×3 (15:01→22:30)
[2018-10-12 15:38] LABS: CREATINE KINASE 41 IU/L (0-156)
--- NOTE | 2018-10-12 17:56 | PDGENHP ---
History and Physical History and Physical: Chief complaint: found down History of present illness: Patient is a 53-year-old female with history of bipolar disorder and depression who was found down earlier by EMS in her home. She was found snoring, pale, hypothermic, and hypertensive. She was suspected to have overdosed on benzodiazepines and SSRIs. EN route to the hospital, patient developed shallow respirations and then became mildly combative, receiving 1 mg of IV Versed. She also received Narcan which did not help at all. In the ED, she was promptly intubated. No history can be obtained from the patient at the time of exam. Past medical history: Bipolar disorder, depression, fibromyalgia, multiple personality disorder, acid reflux, endometriosis, irritable bowel syndrome, hypothyroidism. Past surgical history: Unknown. Medications: Please see med rec form. Includes gabapentin, olanzapine, Effexor , ranitidine, Zofran, and levothyroxine. Allergies: Ampicillin, lamotrigine Social history: Lives in [place]. , disabled. Family history: Unknown. Review of systems: 10 point review of systems was conducted and is negative except per HPI Physical exam: Vitals: Reviewed General: The patient is a thin female who is mildly sedated, intubated and in no acute distress. HEENT: normocephalic. Conjunctivae clear. ET tube in place. Neck: trachea midline, no visible masses, no external lesions. Abd: soft and nondistended. Nontender throughout. Musculoskeletal: 4/5 strength b/l feet/hands. Neuro: Responsive to commands, but patient is mildly sedated. Psych: Unknown. Skin: +mild pallor. Heme/lymph: No peripheral edema. Labs: WBC 16, hemoglobin 14.9, potassium 5.7, creatinine 1.3. Other Data: Chest [id number]. Head CT - negative. Impression and plan: Acute encephalopathy VDRF Suspected drug overingestion Hypothermia SIVAKUMAR Mood disorder/MDD Hyperkalemia, mild Leukocytosis, likely reactive -IVF. -Check UA. -Check LFTs. -Checked trop as add on to earlier labs -- came back elevated. Check another trop now. -Check EKG. -Adjust vent, wean as tolerated (pt waking up now). -Resume home meds after pt passes swallow eval, if she is no longer sedated and able to swallow. -May have a diet trial after passing swallow eval in AM. -antiemetics prn. -VTE ppx - Lovenox. -GI ppx - ranitidine. -Code status - full. Observation status - ICU - for VDRF and close monitoring.
[2018-10-12] MEDS ORDERED: PROMETHAZINE HCL 25 MG/ML INJ IVP PRN (18:10)
[2018-10-12] MEDS ORDERED: PROMETHAZINE HCL 25 MG/ML INJ ONE (18:12)
--- NOTE | 2018-10-12 19:31 | ASMTCMCOM ---
CM Note CM Note Notes: Pt presented to the ED via EMS after being found down/unresponsive, hypotensive, and hypothermic in her home in [place]. Pt admitted for presumed polypharmacy OD. Pt placed on an M1 by [employer]. It is suspected that pt intentionally overdosed on some of her medications (benzodiazepines, SSRIs). Pt has a history of bipolar disorder, multiple personality disorder, depression; pt was recently admitted on [facility] 3 Behavioral unit from 09/25-09/30/18. Pt was found by her friend Adam Duque ([phone]) who also lives in [place]. One of the pt's other close friends, Piero Frederick (h:[phone], c:[phone]) later arrived to the ED; Piero lives in [place]. Per Piero, he and Adam are pt's main support system. Pt is not . Pt was extubated in the ICU and is now AxOx4. This CM spoke w/pt in the ICU; pt is very shaken and emotional. Pt states "I'm not sure I can live in this world anymore. I've created quite the disaster and I'm really scared. I've been through so much, I don't think I can do this anymore. I have fought depression my whole life but now I'm older and I don't have the energy to fight anymore." Pt gave verbal permission to provide updates to Adam and Piero. This CM also had pt sign new updated ROIs (placed in pt's chart) in order for Adam and Piero to receive information re:pt's status. Pt also created a confidentiality password and this was provided to both Adam and Piero per pt's request. Spoke w/Adam and Piero and provided status updates, confidentiality password and the main hospital and [facility] station #s. Pt is followed by [facility] and Dr De La Rosa at [facility]; this CM called and spoke w/Danette, RN Alterations Expert at [facility]. Pt has three animals at home: a cat, a rat (named Jacob) and a snake; Adam and another friend are caring for the animals. 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 Pt to have mental health eval once medically clear/stabilized; Exact DC needs TBD. CM to follow. Date Signed: 10/12/2018 07:30 PM Electronically Signed By:Sapphire Toth RN
[2018-10-12] MEDS ORDERED: FAMOTIDINE 20 MG TAB PO SCH (21:00)
[2018-10-12] MEDS ORDERED: GABAPENTIN 100 MG CAP PO SCH (21:00)
[2018-10-12] MEDS ORDERED: OLANZapine 5 MG TAB PO SCH (21:00)
[2018-10-12] MEDS ORDERED: RANITIDINE HCL 150 MG/10 ML UDCUP PO SCH (21:00)
[2018-10-12] MEDS ORDERED: NALOXONE HCL 0.4 MG/ML INJ ONE (21:35)
[2018-10-12] MEDS ORDERED: ETOMIDATE 40 MG/20 ML INJ IV ONE (21:45)
[2018-10-12] MEDS ORDERED: NALOXONE HCL 0.4 MG/ML INJ IVP ONE (21:45)
--- NOTE | 2018-10-12 21:50 | GCON ---
PULMONARY CRITICAL CARE CONSULTATION REASON FOR CONSULTATION: Acute respiratory failure, drug overdose. HISTORY: The patient is a 53-year-old with a history of depression and bipolar disorder, who was fou nd unresponsive in her home with sonorous respirations. She was transported to the emergency departm ent. She was intubated in the emergency department secondary to unresponsiveness. This was done by RSI. She was started on low-dose propofol for sedation. She was admitted to the intensive care unit on the ventilator. She apparently took benzodiazepines and Neurontin. Other home medications inclu ded Effexor, ondansetron, olanzapine, Synthroid, and Zantac. Tox screen in the emergency department was unremarkable. LABORATORY: Was not revealing. Arterial blood gas initially after extubation showed a pH of 7.27, p CO2 41, and pO2 of 371. White blood cell count was 16,000, hemoglobin 15, hematocrit 47. Chest x-ra y showed no focal pulmonary infiltrates or evidence of congestive heart failure. PAST MEDICAL HISTORY: Remarkable for depression and bipolar disorder, fibromyalgia, gastroesophageal reflux disease, multiple personalities, IBS, and hypothyroidism on replacement. Outpatient medications are as listed above. SOCIAL HISTORY: The patient smoked cigarettes in the past. Alcohol is apparently negative. She mando es in [place], , disabled per her chart. FAMILY HISTORY: Noncontributory. REVIEW OF SYSTEMS: Remarkable for a recent admission to [facility] for major depression. She was discharged on 09/30/2018. She was restarted on Effexor at that time, also on gabapentin for anx iety, and Zyprexa. She was discharged in stable condition. PHYSICAL EXAMINATION: GENERAL: Reveals a thin woman who will arouse with stimulation and respond. VITALS: Blood pressure is 125/80, heart rate 75 with sinus rhythm on the monitor. She is afebrile. She is on 40% FiO2 with saturations of 100%. HEENT: An endotracheal tube is in place. Pupils are e qual. There is no jugular venous distention. CHEST: Clear anteriorly, but breath sounds are quite coarse without alana rhonchi. There are no rales. There are no wheezes. HEART: Regular in rate an d rhythm without gallop. There are no significant murmurs. ABDOMEN: Soft and does not appear to be tender. Bowel sounds are diminished but present. A Ayala catheter is in place. She is making urin e. NEUROLOGIC: Nonfocal. She moves all extremities. She will respond and appears to do so appropr iately, but remains somnolent. DATABASE: CT scan of the head is unremarkable for any acute abnormality. Chest x-ray shows the endo tracheal tube to be low with the tip in the right mainstem bronchus. It will be withdrawn. Laborato ry shows a white blood cell count of 16,000, hematocrit 47. Platelets are normal. Arterial blood ga s shows a pH of 7.27, pCO2 41, and pO2 of 371 after initial intubation. She was on 100% FiO2 at that time. Sodium is 138 with a potassium of 3.8. BUN 17, creatinine 0.9. CO2 22. Phosphorus and magn esium are normal, glucose 152. Liver function studies are within normal limits. TSH is 3.02. ASSESSMENT: 1. Drug overdose. Exact medications that she took are unclear at this time. Apparently, she had ac cess to Ativan and may have taken gabapentin as well. Effexor is also possible. Hemodynamics are st able. EKG is pending. 2. History of depression and bipolar disorder. Presumably this represents a suicide attempt. An M1 hold will be placed post extubation. 3. Metabolic, no issues currently identified. PLAN AND RECOMMENDATIONS: The patient will be supported on the ventilator in the intensive care unit . Once she wakes up and can maintain a level of alertness, she can likely be extubated. She will be placed on a CPAP wean prior to pulling the tube. Intravenous fluids will be continued. Laboratory, chest x-ray and blood gas will be followed. EKG will be obtained. Further history regarding her in gestion will be obtained as is possible. Further plans and recommendations will be made based on her progress over the next 12-24 hours. /[id number]/MODL
--- NOTE | 2018-10-12 21:53 | EDPHY ---
Inpatient Procedure Narrative: 9:50 p.m. I was called to the patient's room for intubation in the ICU. The patient had been extubated earlier this evening. She was not breathing spontaneously and was being bagged. She was clenching her teeth. We administered succinylcholine and etomidate and intubated with a glide scope. X- ray pending. Intubation: emergent intubation the patient. While manually bagging the patient and maintaining the airway, The patient was sedated with 20 mg of Etomidate and paralyzed with 100 mg of succinylcholine. A 7.0 endotracheal tube was placed using the Glidescope. It was placed at 22 cm at the teeth. Placement was confirmed by direct visualization, good color change, and bilateral breath sounds with absent gastric sounds. Chest x-ray is pending. Saturations improved significantly and the procedure was successful.
[2018-10-12] MEDS ORDERED: CHLORHEXIDINE GLUCONATE 15 ML UDL PO SCH (22:00)
[2018-10-12] MEDS ORDERED: ETOMIDATE 40 MG/20 ML INJ ONE (22:10)
[2018-10-12] MEDS: NOREPINEPHRINE BITARTRATE 4 MG in NS 500 ML IV SCH (22:30)
--- NOTE | 2018-10-12 22:33 | PDCODEBLUE ---
Code Blue Note I was called to see this patient for a code blue at 9:40 p.m. Tonight As I receive the patient being diagnostic ventilated with a nasal airway device in place. She was admitted earlier today after a suspected overdose of SSRI at and had been found unresponsive with inadequate respirations in her apartment, required ventilation by bag mask by paramedics in her apartment and on the way here. She did receive Narcan in the ambulance with no benefit and her urine drug screen showed no evidence of narcotics. Her urine drug screen was actually normal all around. She apparently has a long history of depression. In the ER she became very agitated was given some Versed and had respiratory arrest requiring mechanical ventilation intubation. She was on a ventilator from about mid day today on propofol fall and this was weaned off and she was extubate at 5:30 a.m. This evening apparently. Per the nurse the patient became more more agitated through the evening. She was given a dose of Zyprexa and then the dose of 1 mg of Ativan. Not long after the dose of Ativan the patient became unresponsive and had inadequate respirations. She was given a dose of Narcan which did nothing. The patient received bag-mask ventilation and was not waking up and not breathing at all on her own so she is now reintubated and on mechanical ventilator. As I enter the room the patient was with a pulse and with a measurable blood pressure in okay range with somewhat cyanotic skin and hands and feet, and being bag-mask ventilated. We were getting oxygenation. There was no stridor. Her lungs had diminished breath sounds. The abdomen soft and nondistended with no signs of tenderness and there were bowel sounds present. No mass. There is no edema. Neck veins are mildly distended. Looking back at her blood pressures prior to this episode she had been hypertensive and she had been in a sinus rhythm on monitor. The patient was successfully intubated with good CO2 reading. Breath sounds adequate in both lungs and tube secured at 22 cm. I looked at the post intubation chest x-ray and her endotracheal tube is in good position. We have her now on mechanical ventilator and she is had etomidate and socks so she is the breathing per the ventilator at this time. Pupils are normal there is no evidence of cranial nerve abnormality. She has paralyzed so neurologic exam is not really available at this time. Stat labs and ABG are pending. The patient did not require chest compressions, or any electrical therapy as she did have a pulse and a blood pressure throughout this episode. She was in sinus rhythm the whole time. Overall in reviewing her picture I am concerned about the possibility of serotonin syndrome. She has suspected SSRI overdose, hypertension, agitation and confusion, anxiety, and very easily becomes over sedated with benzodiazepine. Is possible that she ingested some other substance that is not showing up on her urine drug screen. I reviewed her case in detail with the ICU nurses and the respiratory therapist as well as the indoor plant technician hospitalist effie. We have placed a call to the consumer electronics merchandiser on-call and place call to poison Control. Greater than 45 min critical care time spent effie
[2018-10-12] MEDS: CHLORHEXIDINE GLUCONATE 15 ML UDL PO SCH (23:14)
[2018-10-13] MEDS: NS 1,000 ML IV SCH (01:45)
[2018-10-13 04:58] LABS: PLATELET COUNT 202 10^3/uL (150-400)
[2018-10-13] MEDS ORDERED: D50W 25 GM/50 ML VIAL ONE (05:52)
[2018-10-13] MEDS: D50W 25 GM/50 ML VIAL IV PRN ×3 (05:58→10:05)
[2018-10-13] MEDS: NOREPINEPHRINE BITARTRATE 4 MG in NS 500 ML IV SCH (08:16)
--- NOTE | 2018-10-13 08:16 | PDMN ---
Medical Necessity Medical necessity: [facility] M153 Drug Ingestion or Overdose: 53 yo w/ overdose SSRIs , went into resp arrest, intubated on vent, admit to ICU inpt status. Extubated per protocol only to be intubated again for code blue, resp arrest. Hx Depression
[2018-10-13] MEDS: ENOXAPARIN 40 MG/0.4 ML SYR SC SCH (08:56)
[2018-10-13] MEDS: CHLORHEXIDINE GLUCONATE 15 ML UDL PO SCH ×2 (08:56→21:57)
[2018-10-13] MEDS: FAMOTIDINE 20 MG/NACL 50 ML IV SCH ×2 (08:56→21:31)
[2018-10-13] MEDS ORDERED: ENOXAPARIN 40 MG/0.4 ML SYR SC SCH (09:00)
[2018-10-13] MEDS ORDERED: VENLAFAXINE XR 75 MG CAP PO SCH (09:00)
[2018-10-13] MEDS ORDERED: ALBUMIN 5% 500 ML IV ONE (09:11)
--- NOTE | 2018-10-13 09:14 | PDINTPN ---
Hospital Superintendent Progress Note Assessment/Plan: Assessment: Respiratory failure. Reintubated last night after a respiratory arrest. She received 1 mg of IV Ativan immediately before her arrest. Intubation was difficult by report. Unclear as to why she would have arrested with low-dose Ativan. Following her extubation in the late afternoon she did relatively well , was on room air or oxygen at 2-3 L. Does have a small infiltrate or atelectasis on L but not the cause of her arrest. No clinical aspiration. Will DC Ativan and her psychotropics/gabapentin at this time and observe closely. Hypotension: On Levophed since re-intubation last night. Decreased blood pressures associated in part with propofol and Precedex. No evidence of sepsis but she does have low-grade temperature elevation. Troponins minimally elevated. Doubt cardiac etiology. EKG pending. For Echo. Drug overdose. Apparently benzodiazepines, gabapentin, possibly Lamictal? Will hold all of these today. Suicide attempt. History of depression, bipolar. Post extubation yesterday the she indicated she was still suicidal. On M1 hold. Metabolic: Hypoglycemia - starting D5NS, getting D50 as needed. LFTs nl. Prophylaxis: On Lovenox and Pepcid. Plan: Continue ventilatory support for now. Will reassess need for ventilator after further CPAP weaning today. Discontinue Ativan and psychotropics for now. Try to readdress ingested substances/medications post extubation. Continue Levophed as needed for MAP less than 60. Nicom check for fluid responsiveness with further fluids as indicated. Status post plasma in fluid bolus earlier without significant affect. Follow blood pressure. Follow laboratory, chest x-ray, ABG. Continue M1 hold and suicide precautions with sitter. 50 min of critical care time spent directly with the patient. Discussed with respiratory, nursing, the ICU multi disciplinary team, and later with the patient's friend who had concerns about long-term psychiatric issues post discharge. I explained to him that she would very likely need repeat inpatient psychiatric hospitalization once she was medically clear. Subjective: Back on ventilator, sedated, arouses weakly. Objective: Vital Signs Temp Pulse Resp BP Pulse Ox 37.9 C 68 20 104/47 L 100 10/13/18 07:00 10/13/18 07:00 10/13/18 07:00 10/13/18 07:00 10/13/18 07:00 Microbiology 10/12/18 17:23 - Final Sputum, Induced/Suctioned Laboratory Results 10/13/18 04:20 10/13/18 04:20 10/12/18 10/13/18 10/14/18 05:59 05:59 05:59 Intake Total 4240 Output Total 1475 Balance 2765 Laboratory Tests 10/12/18 10/13/18 18:00 04:20 Calcium 8.3 L Phosphorus 3.5 Magnesium 1.8 Troponin I 0.215 H Laboratory Tests 10/12/18 22:50 pCO2 42 H pO2 174 H Total CO2 20 L ABG pH 7.27 L O2 Concentration % 60 Actual Respiration Rate 16 Tidal Volume 350 PEEP 5 Peak Inspir Pressure 13 Pressure Support 7 CXR: Endotracheal tube in good position. Increased markings. Small infiltrate or area of atelectasis at the left base. Physical Exam - Physical Exam General Appearance: mild distress (Anxious when awakes), thin, other (On ventilator) EENT: PERRL/EOMI, ET tube Neck: normal inspection (No JVD) Respiratory: lungs clear (Anteriorly), decreased breath sounds (At bases), No rhonchi (Coarse breath sounds persist), No wheezing Cardiac/Chest: regular rate, rhythm, No gallop Abdomen: non-tender, soft, No normal bowel sounds (Decreased, present) Pelvic Exam: other (Ayala catheter in place, good urine output.) Skin: normal color, warm/dry Extremities: No pedal edema Neuro/Psych: no motor/sensory deficits (Moves all extremities), cognition abnormalities (Likely intact) ICD10 Worksheet Patient Problems: Problems Problem Status Onset Severe major depression Acute Overdose Acute Respiratory depression Acute Altered mental status Acute
[2018-10-13] MEDS ORDERED: D5W NS W/ 20 KCl/L 1,000 ML IV SCH (09:15)
[2018-10-13] MEDS ORDERED: DEXMEDETOMIDINE HCL 400 MCG in NS 100 ML IV SCH (09:30)
--- NOTE | 2018-10-13 09:50 | HOSPPROG ---
Hospitalist Progress Note Assessment/Plan: The patient is a 53-year-old female with PMH severe depression who was admitted for suicide attempt/drug overdose. ASSESSMENT/PLAN: VDRF -vent mgmt, sedation, daily CXR, weaning trial per Pulm/CC likely tomorrow. Acute encephalopathy Hypotension, 2/2 propafol -D/w Pulm who is switching to Precedex and continuing IVF. Suicide attempt/ideation Drug overdose, unk ingestion Mood disorder/MDD -Pt will need to go back to Behavioral Health after she reaches her baseline status medically. -1:1 Sitter. -Poison control Case #[id number]. I have called to clarify how to monitor cardiac status -- see recs below. They recommend to give her a day on the vent to allow unk substance to wear off. -Recheck drug screen in case she took something else last night. QT Prolongation Troponin elevation Nonsustained VT, episodic -Recheck trop. -Keep electrolytes at high limit of normal. K > 4, Mg > 2. -If pt gets bradycardic, check EKG again to eval for elongating QT. -Monitor for arrhythmias on tele, follow ACLS if she develops a concerning arrhythmia. Hypoglycemia -D5W. SIRS, 2/2 being intubated -check blood cultures if pt develops signs worrisome for infection Hyperkalemia, resolved Leukocytosis, improved Hypothermia, resolved SIVAKUMAR, resolved VTE prophylaxis: Lovenox Code Status: Full code Status: Changing to Inpatient for > 2 midnight stay. Disposition: Med surg with discharge in the next few days to inpatient Psych. ____ SUBJECTIVE: Last evening, pt was extubated after a successful weaning trial. I had seen her -- she was awake, told me she was suicidal and wanted to . Per RN, pt had previously been reluctant to be DC'd from inpt Psych because she felt suicidal. Pt said she had taken 30 tabs of oxycodone (but she did not sound sure). She had gotten gabapentin around 8pm. An hour later, she was agitated and was given Ativan 1mg, after which she stopped breathing and had to be reintubated. OBJECTIVE: Physical Exam: General: The patient is a thin female who is mildly sedated, intubated and in no acute distress. HEENT: normocephalic. Conjunctivae clear. ET tube in place. Neck: trachea midline, no visible masses, no external lesions. Abd: soft and nondistended. Nontender throughout. Musculoskeletal: noted pt moving hands, feet spontaneously. Neuro: No clonus. Psych: Unknown. Skin: +mild pallor. Heme/lymph: No peripheral edema. Labs/Imaging/Other Tests: Personally reviewed/interpreted. Chest x-ray: lines in place. No acute cardiopulmonary abnormality. Personally interpreted. EKG: Sinus rhythm, rate 70, atrial abnormality, QTc >500 Objective: Vital Signs Temp Pulse Resp BP Pulse Ox 37.9 C 89 20 104/47 L 100 10/13/18 07:00 10/13/18 08:00 10/13/18 08:00 10/13/18 07:00 10/13/18 08:00 Microbiology 10/12/18 17:23 - Final Sputum, Induced/Suctioned Laboratory Results 10/13/18 04:20 10/13/18 04:20 10/12/18 10/13/18 10/14/18 05:59 05:59 05:59 Intake Total 4240 Output Total 1475 Balance 2045 - Time Spent With Patient Time Spent with Patient: greater than 35 minutes Time Spent with Patient: Greater than 35 minutes spent on this patients care, greater than 50% of time spent counseling, educating, and coordinating care regarding the above mentioned plan. ICD10 Worksheet Patient Problems: Problems Problem Status Onset Altered mental status Acute Overdose Acute Respiratory depression Acute Severe major depression Acute
[2018-10-13] MEDS ORDERED: LEVOTHYROXINE 88 MCG TAB PO SCH (10:00)
[2018-10-13] MEDS ORDERED: POTASSIUM CL 20 MEQ/15 ML UDCUP PO ONE (10:22)
[2018-10-13] MEDS ORDERED: MAGNESIUM SULF 1 GM/DEXTROSE 100 ML IV ONE (10:23)
[2018-10-13] MEDS ORDERED: D50W 25 GM/50 ML SYR IVP ONE (11:30)
--- NOTE | 2018-10-13 14:53 | ECHO ---
[email or web address] [address] [address] Main: [phone] Fax: Transthoracic Echocardiogram Name: LETA GORDON MR#: [id number] Study Date: 10/13/2018 Study Time: 01:24 PM Date of : 1965 Age: 53 year(s) Height: 157.5 cm (62 in.) Weight: 49.9 kg (110 lb.) BSA: 1.48 m2 Gender: Female Examination: Echo Indication: hypotension, drug overdose possibly with drugs affecting cardiac status Image Quality: Adequate Contrast: Requested by: Shaggy Angela BP: 122 mmHg/37 mmHg Heart Rate: Rhythm: Indication: hypotension, drug overdose possibly with drugs affecting cardiac status Procedure Staff Slack Cooper: Karolina Vásquez [facility] Reading Physician: Anna Da Silva MD Requesting Provider: Conclusions: Normal size left ventricle. No LV hypertrophy. Normal global systolic LV function. EF is 78 %. No regional wall motion abnormality. Normal diastolic LV function. Mildly dilated right ventricle. Normal RV function. Mild mitral valve regurgitation is present. Mild tricuspid regurgitation is present. Right ventricular systolic pressure measures 34mmHg. Trivial to small pericardial effusion. There is no previous echocardiogram for comparison. Measurements: Chambers Valvular Assessment AV/MV Valvular Assessment TV/PV Normal Normal Normal Name Value Range Name Value Range Name Value Range Ao Polina (2D): 2.3 cm (1.4 cm-2.6 AV Vmax: 1.62 m/s (1 m/s-1.7 TR Vmax: 2.67 mm/s ( - ) cm) m/s) TR PGmax: 29 mmHg ( - ) IVSd (2D): 0.8 cm (0.6 cm-1.1 AV maxP mmHg ( - ) syst. PAP: 34 mmHg ( - ) cm) AV meanP mmHg ( - ) PV Vmax: 0.95 m/s (0.6 m/s-0.9 LVDd (2D): 3.8 cm (3.9 cm-5.3 ESME (VTI): 1.2 cm ( - ) m/s) cm) MV E Vmax: 1.03 m/s ( - ) PV PGmax: 4 mmHg ( - ) LVDs (2D): 2.5 cm (2.1 cm-4 MV A Vmax: 0.66 m/s ( - ) cm) MV E/A: 1.56 ( - ) LVPWd (2D): 0.8 cm ( - ) MV PHT: 0.060 s ( - ) LVOTd 1.6 cm 1.6 cm mm MVA (PHT): 3.7 s ( - ) LVEF (MOD2): 78 % (>=55 %) Patient: LETA GORDON Study Date: 10/13/2018 Page 1 of 2 01:24 PM RVDd(2D): 2.2 cm (1.9 cm-3.8 cmmm) Continued Measurements: Chambers Valvular Assessment AV/MV Valvular Assessment TV/PV Name Value Name Value Name Value LADs: 2.9 cm MV DecTime: 222 m/s CVP (est.): 5 mmHg LADs Lon.7 cm MV E' Septal: 0.09 m/s LA Area: 11.5 cm2 MV E/E' Septal: 11.40 RA Area: 10.9 cm2 MV E/E' Lateral: 9.70 Additional Vessels Name Value Inferior Vena Cava: 1.9 cm Findings: Left Ventricle: Normal size left ventricle. No LV hypertrophy. Normal global systolic LV function. EF is 78 %. No regional wall motion abnormality. Normal diastolic LV function. Right Ventricle: Mildly dilated right ventricle. Normal RV function. Left Atrium: The left atrium is normal in size. Right Atrium: The right atrium is normal in size. Mitral Valve: The mitral valve is normal in appearance and function. Mild mitral valve regurgitation is present. No mitral stenosis is present. Aortic Valve: The aortic valve is tri-leaflet. There is no significant aortic valve regurgitation. No aortic valve stenosis is present. Tricuspid Valve: The tricuspid valve is normal in appearance and function. Mild tricuspid regurgitation is present. The pulmonary artery pressure is normal. Right ventricular systolic pressure measures 34mmHg. Pulmonic Valve: The pulmonic valve is normal in appearance and function. There is no pulmonic regurgitation seen. Aorta: The aorta is normal. Normal size aortic root measuring 2.3 cm. IVC: The IVC is normal sized. Pericardium: No pleural effusion. Trivial to small pericardial effusion. Exam Comments: Patient on ventilator. (No Signature Object) Patient: LETA GORDON Study Date: 10/13/2018 Page 2 of 2 01:24 PM [id number]
--- NOTE | 2018-10-13 15:16 | ASMTCMCOM ---
CM Note CM Note Notes: Met with patient's friend, Piero Frederick. Piero was concerned patient have follow up resources when she returns home as he thinks patient will make another suicide attempt without ongoing intervention. Piero would like an advocate for patient who follows her in the community. Gave him brochures on [facility] and made the referral so they can meet with patient about getting her connected with a family dr for follow up regarding the pain and nausea issues. [facility] also help patient get connected with a counselor for weekly therapy and a psychiatrist if she does not want to return to [facility]. Patient according to Piero missed an appointment with Dr. De La Rosa scheduled for yesterday. Patient has been waiting a long time for this appointment. Will check with patient tomorrow to see if she would like me to notify [facility] she is in the hospital. It was explained to Piero patient will get a psychiatric evaluation to determine if she needs inpatient care when she is medically clear. [facility] can follow up whether she goes for hospitalization or not. They will adjust to whenever the patient is ready to return home. CM will follow. Date Signed: 10/13/2018 03:15 PM Electronically Signed By:Rossy Shirley LCSW
[2018-10-14 04:20] LABS: PLATELET COUNT 164 10^3/uL (150-400)
--- NOTE | 2018-10-14 06:46 | CPEKG ---
Test Reason : OPEN Blood Pressure : / mmHG Vent. Rate : 071 BPM Atrial Rate : 071 BPM P-R Int : 128 ms QRS Dur : 077 ms QT Int : 494 ms P-R-T Axes : 081 080 064 degrees QTc Int : 537 ms Sinus rhythm Prolonged QT interval Confirmed by Phillip Haley ([id number]) on 10/14/2018 6:45:45 AM Referred By: Confirmed By:Phillip Haley
[2018-10-14] MEDS: ENOXAPARIN 40 MG/0.4 ML SYR SC SCH (08:21)
[2018-10-14] MEDS ORDERED: FAMOTIDINE 20 MG TAB PO SCH (09:00)
[2018-10-14] MEDS ORDERED: VENLAFAXINE XR 75 MG CAP PO SCH (12:30)
--- NOTE | 2018-10-14 12:43 | PDINTPN ---
Cake Tester Progress Note Assessment/Plan: Assessment: Respiratory failure. Resolved. Intubation required on admission, extubated the next day and reintubated after receiving Ativan 1 mg IV 6 hr after initial extubation. Has had no problems since re-extubated. Hypotension: Resolved. Echo within normal limits Drug overdose. She states she overdosed on oxycodone. Did not take any benzodiazepines or psychotropics. Will restart the latter.. Suicide attempt. History of depression, bipolar. Post extubation she indicated she was still suicidal, however today she denies this. On M1 hold. Metabolic: No significant issues identified. Potassium and phos borderline low. Prophylaxis: On Lovenox and Pepcid. Plan: Patient medically clear. Will restart Zyprexa and Effexor. She was not taking gabapentin at night. This did not help her sleep and gave her a dry mouth. To be evaluated by Psychiatry for disposition. May need readmission to inpatient psychiatry? 30 min of critical care time spent directly with the patient. All the above discussed with the patient, hospitalist, nursing, the ICU multi disciplinary team. Subjective: Feels better. Stable since extubation. Vital signs stable. Denies suicide ideation. Objective: Vital Signs Temp Pulse Resp BP Pulse Ox 36.6 C 74 14 103/54 L 100 10/14/18 10:00 10/14/18 10:00 10/14/18 10:00 10/14/18 10:00 10/14/18 10:00 Microbiology 10/12/18 17:23 - Final Sputum, Induced/Suctioned Laboratory Results 10/14/18 04:05 10/14/18 04:05 10/13/18 10/14/18 10/15/18 05:59 05:59 05:59 Intake Total 4240 4885.2 240 Output Total 1475 2750 350 Balance 2765 2135.2 -110 Physical Exam - Physical Exam General Appearance: alert, no apparent distress, thin EENT: PERRL/EOMI, other (On room air) Neck: normal inspection Respiratory: lungs clear, normal breath sounds Cardiac/Chest: regular rate, rhythm, No gallop Abdomen: normal bowel sounds, non-tender, soft Skin: normal color, warm/dry Extremities: No pedal edema Neuro/Psych: no motor/sensory deficits, No cognition abnormalities ICD10 Worksheet Patient Problems: Problems Problem Status Onset Altered mental status Acute Overdose Acute Respiratory depression Acute Severe major depression Acute
--- NOTE | 2018-10-14 13:19 | ASMTCMCOM ---
LOPEZ Note LOPEZ Note Notes: [facility] she is interested. She would like to meet with them when she gets home from the hospital so LOPEZ will notify Alannah to call patient to set up an appointment. Patient got her psych eval today and she will go to , [facility]. Transport arranged for patient to happen after nurse to nurse. No further needs. Date Signed: 10/14/2018 01:18 PM Electronically Signed By:Rossy Shirley LCSW
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
--- NOTE | 2018-10-14 13:28 | ASMTTCLDSP ---
TLC Discharge Disposition Disposition: Answers: Admit Disposition Notes: Notes: Admit 3N. Discharge Concerns/Recommendations: Notes: In consultation with [facility] ED assistant manager airside operations, Shaggy Angela MD, and on-call psychiatrist, Damian Hooker MD, both concurred that pt appears to meet 27-65 criteria requiring psychiatric hospitalization as pt appears to be at risk of harm to self due to a mental illness condition. Pt was given the 3N prohibited belongings list while in the ICU. Was patient given the Answers: Yes Inpatient Behavioral Health Prohibited Belongings List while in the ED? For inpatient Damian Hooker MD admission, the following psychiatrist agreed to accept patient for admission to Behavioral Health ([facility]): Date Signed: 10/14/2018 01:27 PM Electronically Signed By:Alden Cabral
[2018-10-14 13:39] VITALS: BP 122/76
--- NOTE | 2018-10-14 14:04 | ASMTDCNOTE ---
Case Management Discharge Discharge Order Complete? Answers: Yes Patient to Obtain Answers: Other Notes: Behavioral Health - 3[facility] Medications Transportation Arranged Answers: [facility] Stretcher Transport will Pick (Date 10/14/2018 12:00 AM & Time) EMTALA Complete Answers: Yes Notes: Behavioral Health Case Management Transport Answers: Yes Notes: [facility]/ [facility] Form Complete Faxed Final Orders Answers: Yes Notes: Behavioral Health Agency/Facility Transfer Answers: Yes Notes: Behavioral Health Report Printed & Faxed to Receiving Agency Family Notified Answers: Yes Notes: friend - Piero Discharge Comments Notes: Patient to transfer to [facility], [facility] today. Transport arranged through [facility] for today at 16:00 (4:00 PM). PCS and face sheet prepared and left at the front desk attendant for the transport team. No further needs. Date Signed: 10/14/2018 02:03 PM Electronically Signed By:Rossy Shirley LCSW
[2018-10-14] MEDS ORDERED: MAG HYDROX/AL HYDROX/SIMETH 30 ML UDCUP PO ONE (14:06)
--- NOTE | 2018-10-14 16:49 | GDS ---
DISCHARGE DIAGNOSES: 1. Intentional drug overdose. 2. Acute hypoxemic respiratory failure, requiring intubation and mechanical ventilation, resolved, n ow on room air. 3. Acute encephalopathy, resolved. 4. History of depression. 5. T2 prolongation. 6. Nonsustained ventricular tachycardia, stabilized. 7. Acute kidney injury, resolved. 8. Hypothermia, resolved. 9. Hyperkalemia, resolved. 10. Leukocytosis, resolved. CONSULTANTS: Dr. Shaggy Angela, Pulmonology. HISTORY: For details, please see history and physical dated October 12, 2018. In brief, the patient is a 53-year-old female with a history of depression and bipolar disorder, who was [facility] after being found down by EMS in her home. It was suspected she had overdosed on b enzodiazepines and opioids. She was admitted to the hospital for further management. HOSPITAL COURSE: The patient was in the Intensive Care Unit. She initially required intubation and mechanical ventilation. She was extubated and is now maintained on room air. She had several labora tory abnormalities, including leukocytosis, which may have been hemoconcentration. This resolved wit hout antibiotics. She had a mild metabolic acidosis, which is also improved. She also had a mild ac codey kidney injury, which resolved with IV fluids. She had a slight elevation of her troponin, which was likely demand ischemia. This trended down. She has been chest pain free. Her urine drug screen was positive for opioids and benzodiazepines, and she did admit to taking an overdose of oxycodone. In addition, she also received Narcan during her initial management. On the day of discharge, she i s awake, mentating clearly. Her vital signs are stable with blood pressure , heart rate 69 , respiratory rate 16. She is 100% on room air, and she has been afebrile. She is medically cleared and evaluated by [facility], who has recommended she transfer to inpatient psych unit for ongoing behaviora l health stabilization. DISPOSITION: Patient is discharged to inpatient psych unit in stable condition. FOLLOWUP: She should follow up with her primary care physician, as well as Psychiatry. DISCHARGE MEDICATIONS: Please see [facility] for completed outpatient medication list. She will georgina nue all home medications with the exception of Zofran, which was discontinued in the setting of prolo nged QT segment. /[id number]/MODL
[2018-10-14] MEDS ORDERED: OLANZapine 5 MG TAB PO SCH (21:00)
== END 2018-10-14 16:15 | DRG 917 ==
LOC: EDUNIT# → EEVIPCON 11:37 → F2N 13:32 → EEVIPCON 13:32
PROVIDERS: ADMIT Internal Medicine; ATTEND Hospitalist
PROC: 5A1935Z Respiratory Ventilation, Less than 24 Consecutive Hours (ICD-10-PCS; principal; 2018-10-12)
PROC: 0BH18EZ Insertion of Endotracheal Airway into Trachea, Via Natural or Artificial Opening Endoscopic (ICD-10-PCS; principal; 2018-10-12)
PROC: 0BH18EZ Insertion of Endotracheal Airway into Trachea, Via Natural or Artificial Opening Endoscopic (ICD-10-PCS; 2018-10-12)
PROC: 5A1935Z Respiratory Ventilation, Less than 24 Consecutive Hours (ICD-10-PCS; 2018-10-12)
DX: T40.2X2A Poisoning by other opioids, intentional self-harm, initial encounter (principal); J96.01 Acute respiratory failure with hypoxia; G92 Toxic encephalopathy; F32.9 Major depressive disorder, single episode, unspecified; I47.2 Ventricular tachycardia; N17.9 Acute kidney failure, unspecified; T68.XXXA Hypothermia, initial encounter; E87.5 Hyperkalemia; D72.829 Elevated white blood cell count, unspecified; E03.9 Hypothyroidism, unspecified; K21.9 Gastro-esophageal reflux disease without esophagitis
CPT/HCPCS: 80305; 80307; 82435-PO; 82565-PO; 82947-PO; 84132-PO; 84295-PO; 84520-PO; 85014-ER; 96365; G0480; J0330; J1650; J2060; J2310; J2550; J2704; J3475; P9041

== ENCOUNTER 2018-10-14 16:35 | Inpatient (IN) | payer OTHER, MEDICAID ==
[2018-10-14] MEDS ORDERED: MAG HYDROX/AL HYDROX/SIMETH 30 ML UDCUP PO PRN (18:01)
[2018-10-14] MEDS ORDERED: CEPACOL LOZENGE PO PRN (20:06)
[2018-10-14] MEDS: traZODone 100 MG TAB PO SCH (21:21)
[2018-10-14] MEDS: MAGNESIUM HYDROXIDE 30 ML UDCUP PO PRN (21:34)
--- NOTE | 2018-10-15 07:38 | ASMTBHMTP ---
Master Treatment Plan Master Treatment Plan Answers: Depressed Mood with for: Suicidal Ideation Date: 10/14/2018 Diagnosis on Admission: Major Depressive Disorder, recurrent, severe 296.33 (F33.2) Expected length of stay: 3-5 days Reason for admission: Notes: Per Report: Client is a 53 yoa female with known history of Major Depressive Disorder, brought to [facility] ED by [employer] on M1-noted "Officer responded on a report of a female, possible overdosing. Client reported that she "took an overdose of pain medication (Oxycondone) unknown amount." Patient's stated presenting problems: Notes: "I had a suicide attempt." Patient's goals for treatment: Notes: "to feel better." Patient's strengths: Notes: none at the moment. Identify supports outside of hospital: Notes: good friends in the community Discharge criteria: Notes: Suicidal Ideation will resolve and patient will have a plan to safely manage recurrent suicidal ideation.* Initial disposition plan/considerations: Notes: "[I] don't know yet." Master Treatment Plan Required Signatures Psychiatrist signature: Answers: Psychiatrist: RN on-shift signature: Answers: RN: Patient signature: Answers: Patient: Date Signed: 10/15/2018 07:37 AM Electronically Signed By:Timothy Quijano
[2018-10-15] MEDS ORDERED: ONDANSETRON DISINTEGRATING 4 MG TAB PO PRN (08:15)
[2018-10-15] MEDS ORDERED: LEVOTHYROXINE 88 MCG TAB PO ONE (08:52)
[2018-10-15] MEDS ORDERED: VENLAFAXINE XR 150 MG CAP PO SCH (09:00)
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
--- NOTE | 2018-10-15 11:58 | PDMN ---
Medical Necessity Medical necessity: Pt meets INPT criteria per [place] as of 10/14/18 and [facility] [id number] Major Depressive Disorder, IP Care (est. LOS >2 MN for MDD, recurrent, severe; M1 hold).
[2018-10-15] MEDS: VENLAFAXINE XR 150 MG CAP PO SCH (13:38)
[2018-10-15] MEDS: VENLAFAXINE XR 75 MG CAP PO SCH (13:47)
[2018-10-15] MEDS: MAGNESIUM HYDROXIDE 30 ML UDCUP PO PRN (21:09)
[2018-10-15] MEDS: traZODone 100 MG TAB PO SCH (21:14)
[2018-10-16] MEDS ORDERED: LEVOTHYROXINE 75 MCG TAB PO SCH (06:00)
[2018-10-16] MEDS: LEVOTHYROXINE 88 MCG TAB PO SCH (06:27)
[2018-10-16] MEDS: VENLAFAXINE XR 150 MG CAP PO SCH (08:18)
[2018-10-16] MEDS: VENLAFAXINE XR 75 MG CAP PO SCH (08:18)
--- NOTE | 2018-10-16 08:18 | SOAPPROG ---
SOAP Progress Note Assessment/Plan: Assessment: Major Depressive Disorder, Severe, With Anxious Distress. No improvement noted. Patient reports not feeling safe to discharge and could benefit from inpatient hospitalization for observation for safety and medication adjustment ( see subjective/objective note). Patient recently discharged from this hospital and decompensated quickly after discharge, leading to serious overdose with Oxycodone. Patient could benefit from additional stay to evaluate medications and establish safe discharge plan. Patient could benefit from continued inpatient hospitalization for crisis stabilization, safety, and medication evaluation. Plan: 1. Psychotropic medications: After reviewing options, risks, and benefits patient agrees to continue current medications. No medication changes at this time as more time is needed to determine ongoing tolerability and efficacy. Plan is to continue to observe patient for response and side effects from medications, and ongoing monitoring and evaluation. 2. Review with patient informed consent and recommendations for psychotropic medication treatment listed below 3. Labs/Studies: EKG today 4. Therapy: continue milieu and group therapy 5. Further investigation including gathering information from patients relatives and review of past case records to inform treatment plan. 6. Safety/Wellness plan and follow-up outpatient appointments to be established prior to discharge. Next steps are for patient to meet with home care attendant to plan a safe discharge plan and establish outpatient services for ongoing treatment. 7. Confer with inpatient treatment team regarding treatment plan. 8. Psychosocial stressors addressed through spring encaser 9. Legal status: voluntary 10. Consider discharge next week if patient is in stable condition, safe, and has a safe discharge plan. 11. Hospitalist consult to see patient and address physical complaints (see Subjective) PSYCHOTROPIC MEDICATION TREATMENT INFORMED CONSENT and RECOMMENDATIONS: Review nature of condition, diagnosis, and prognosis. Review nature and purpose of psychotropic medication treatment. Review type of psychotropic medications being ordered. Review risk and benefits of psychotropic medication treatment. Review probable length of time patient will need to take medications. Review risk and benefits of not undergoing psychotropic medication treatment. Review alternative treatments to psychotropic medications. Review psychotropic medications contraindications, drug-drug interactions, side effects, and importance of reporting any side effects to a psychiatric provider or nurse during inpatient hospitalization, and upon discharge to patients psychiatric outpatient provider, primary care provider, or other health child care. Review importance of asking a nurse, psychiatric provider, or primary care provider any questions or problems concerning the psychotropic medications. Verify patient understands the information that has been provided, and understands, accepts, and agrees to psychotropic medications. Review patients safety plan and importance of patient to report to staff while hospitalized if patient is ever a danger to self/others, or unable to care for self, and upon discharge, the importance for patient to contact [facility] or [facility], or go to the nearest emergency room, if patient is ever a danger to self/others, or unable to care for self. Recommend that upon discharge patient establish medication management treatment with a psychiatric provider, establishes routine therapy appointments, and follow-up with primary care provider. Verify patient understands and agrees to these recommendations. 10/16/18 08:19 Subjective: Following up with patient for evaluation of depression, anxiety, and safety. Patient reports, "Don't feel very well physically. Stomach pain, constipation, swelling in arms and hands." Patient reports she doesn't feel safe to discharge. Patient expresses the following psychiatric symptoms severe depression and moderate anxiety. Patient reports taking medications as prescribed, and describes response to medications as poor. Patient does not report undesirable side effects from the medications, and agrees to continue current medications. Patient agrees to EKG this AM. Objective: Vital Signs Temp Pulse Resp BP Pulse Ox 36.9 C 94 16 165/80 H 94 10/16/18 06:00 10/16/18 06:00 10/16/18 06:00 10/16/18 06:00 10/16/18 06:00 NURSING REPORT: Consulted with nursing for update on patients progress in treatment. Nurses report patient is not engaged in treatment, is not attending groups, avoiding social interactions, slept 8 hours, expresses the following psychiatric symptoms: severe depression, exhibits the following psychiatric symptoms: flat affect; is eating all meals, is agreeable to medications and taking as prescribed with no report of side effects, with no s/s of EPS/ akathisia, and denies SI/HI, denies A/V hallucinations, and denies delusions. HOSPITALIST CONSULT: RN to contact hospitalist for patients report of physical symptoms (see Subjective) MSE: The patient is an undernourished female looking stated chronological age. Attire is appropriate and dress is casual. Grooming status is appropriate. Ambulation is independent. Gait is normal and coordinated. Posture is normal and relaxed. Eye contact is appropriate. Motor activity is appropriate with purposeful, organized, coordinated movements; with no involuntary movements. Attitude is cooperative and friendly. Patient is attentive and relates well to this interviewer. Language production is spontaneous. Rate is hesitant. Latency of response is prolonged. Articulation is clear. Patient reports mood as depressed with congruent affect. Patients thought process is linear and logical with no signs of thought disorder. Patient does report suicidal ideation; denies homicidal thoughts, ideas, or plans. Patient denies auditory hallucinations, denies visual hallucinations. Patient denies delusions. Patient does not appear to be attending to internal stimuli. Patients attention and concentration are fair. Patient is oriented to person, place, time, and situation. Patients insight and judgement are poor. - Time Spent With Patient Time Spent With Patient: 15 minutes, met with patient individually. - Pending Discharge Pending Discharge Within 24 Hours: No Pending Discharge Within 48 Hours: No ICD10 Worksheet Patient Problems: Problems Problem Status Onset Altered mental status Acute Overdose Acute Respiratory depression Acute Severe major depression Acute
[2018-10-16] MEDS: MAGNESIUM HYDROXIDE 30 ML UDCUP PO PRN ×2 (08:27→20:29)
--- NOTE | 2018-10-16 13:16 | SOAPPROG ---
SOAP Progress Note Assessment/Plan: Assessment: Edema, left upper extremity. She received considerable IV hydration during her recent hospitalization and is likely showing some fluid overload. Unclear why it is only present in the left upper extremity, however with no axillary tenderness and no history of recent PICC line, I do not suspect upper extremity DVT. Consider further evaluation if it does not resolve spontaneously over several days. Abdominal pain, likely due to constipation. Will add senna twice daily p.r.n. I have discussed with nurse to give her 1 tablet this evening. Will also order bisacodyl suppository p.r.n.. Of note, she had an abdominal CT done in July of 2018 in which there were retroperitoneal lymph nodes noted and advice to repeat an abdominal CT in 3 months. If abdominal pain does not remit after moving bowels consider a follow-up abdominal CT. Otherwise it should be scheduled as an outpatient. 10/16/18 13:13 Subjective: Asked to see patient about left upper extremity swelling and about abdominal pain. She reports last bowel movement was a couple of days ago but none is recorded from her recent hospitalization. She denies axillary pain or tenderness. No nausea or vomiting. Objective: Vital Signs Temp Pulse Resp BP Pulse Ox 36.9 C 94 16 165/80 H 94 10/16/18 06:00 10/16/18 06:00 10/16/18 06:00 10/16/18 06:00 10/16/18 06:00 Physical Exam - Physical Exam General Appearance: WD/WN, alert, no apparent distress Abdomen: normal bowel sounds, non-tender, soft, No organomegaly, No distended, No mass Skin: normal color, warm/dry Extremities: other (Left upper extremity with 1+ pitting edema primarily over the forearm. No axillary or medial humerus mass or tenderness.) Neuro/Psych: no motor/sensory deficits, alert, normal mood/affect, oriented x 3 ICD10 Worksheet Patient Problems: Problems Problem Status Onset Altered mental status Acute Overdose Acute Respiratory depression Acute Severe major depression Acute
--- NOTE | 2018-10-16 15:54 | ASMTBHDC ---
Notes Note: Notes: The patient refused to participate in clinical treatment team rounds two days in a row. The patient's visitors expressed disappoint with the patient's previous follow up care. This financial writer [facility] to follow up regarding outpatient services and encourage the patient to contact [facility] to learn about the many possibilities for care. Date Signed: 10/16/2018 03:53 PM Electronically Signed By:Pepper Spencer
[2018-10-16] MEDS: traZODone 100 MG TAB PO SCH (20:32)
[2018-10-17] MEDS: LEVOTHYROXINE 88 MCG TAB PO SCH (06:27)
[2018-10-17] MEDS: VENLAFAXINE XR 75 MG CAP PO SCH (08:37)
[2018-10-17] MEDS: VENLAFAXINE XR 150 MG CAP PO SCH (08:37)
--- NOTE | 2018-10-17 14:30 | ASMTCMCOM ---
CM Note CM Note Notes: Pt reports "not feeling well" adding she doesn't feel well "physically and mentally". Pt. reports "lot of pain" in her stomach and lower abdomin Pt. stated mentally she is "feeling john low". Pt. stated she wants to "get on medication to help" adding her current medication is "not helping this time". Pt. reports sleeping "not very well" adding she "haven't been sleeping well for a while". Pt. stated she found it "hard to stay asleep". Pt. reports eating well, but currently "haven't been feeling that great". Pt. stated her medications "doesn't seem to be working that great". Pt. reports not attending groups due to not feeling well. Pt. denied SI, HI, AVH and paranoia. Pt. presents as alert, flat, slight delay in response, pale, tired, fair to good eye contact, soft spoken and cooperative. Staff report pt. sleeping 8 hours and refusing trazodone last night. Date Signed: 10/17/2018 02:29 PM Electronically Signed By:Kaylee Duke
--- NOTE | 2018-10-17 18:07 | SOAPPROG ---
SOAP Progress Note Assessment/Plan: Assessment: Per Ivan Wells's notes: Major Depressive Disorder, Severe, With Anxious Distress. No improvement noted. Patient reports not feeling safe to discharge and could benefit from inpatient hospitalization for observation for safety and medication adjustment ( see subjective/objective note). Patient recently discharged from this hospital and decompensated quickly after discharge, leading to serious overdose with Oxycodone. Patient could benefit from additional stay to evaluate medications and establish safe discharge plan. Patient could benefit from continued inpatient hospitalization for crisis stabilization, safety, and medication evaluation. Plan: 1. Psychotropic medications: After reviewing options, risks, and benefits patient agrees to continue current medications. No medication changes at this time as more time is needed to determine ongoing tolerability and efficacy. Plan is to continue to observe patient for response and side effects from medications, and ongoing monitoring and evaluation. Plan: 10/17/18 18:02 1. Patient had repeat EKG on 10/16 d/t increased QTc interval on 10/13/18. Results pending. 2. Dr. Lyons recommended Senna BID PRN for constipation. Will order to start today. He recommended f/u CT abdomen if pain persists and not relieved by bowel movement. 3. Patient feels that Effexor is "not working" but reluctant to try a different medication. She has had ECT in past, but says she doesn't want any more ECT. MD discussed r/b/se's of different tx options including 1:1 and group psychotherapy to augment her medication tx. Patient says she is open to therapy and would like more information about what types of therapy are available through [facility]. 4. Patient is willing to sign in voluntarily. 5. CCM - no changes Subjective: Patient sitting up in bed wearing long sleeved shirt and jeans. RN is present in room during interview. Patient says her Effexor is "not working." She reports trying "lots of meds" in past and complains that they frequently "stop working" after a period of time. MD suggested that she might need more than just medication management to treat her symptoms. She says she has done very little therapy in the past b/c "changing meds always worked." MD questioned whether or not this was true if she frequently had to change meds to get a better effect. Patient still feels depressed but denies any SI/HI. Objective: Vital Signs Temp Pulse Resp BP Pulse Ox 36.8 C 111 H 18 155/79 H 95 10/17/18 06:00 10/17/18 06:00 10/17/18 06:00 10/17/18 06:00 10/17/18 06:00 MSE: Affect: Sad Mood: "Depressed" TP: Linear TC: Denies any SI/HI Insight/ Judgment: Poor a/e/b recent OD - Time Spent With Patient Time Spent With Patient: 25" - Pending Discharge Pending Discharge Within 24 Hours: No Pending Discharge Within 48 Hours: No ICD10 Worksheet Patient Problems: Problems Problem Status Onset Altered mental status Acute Overdose Acute Respiratory depression Acute Severe major depression Acute
[2018-10-17] MEDS: MAGNESIUM HYDROXIDE 30 ML UDCUP PO PRN (19:36)
[2018-10-17] MEDS: traZODone 100 MG TAB PO SCH (20:36)
[2018-10-18] MEDS: VENLAFAXINE XR 75 MG CAP PO SCH (07:54)
[2018-10-18] MEDS: VENLAFAXINE XR 150 MG CAP PO SCH (07:54)
[2018-10-18] MEDS: SENNOSIDES 1 TAB PO PRN (07:54)
[2018-10-18] MEDS: LEVOTHYROXINE 88 MCG TAB PO SCH (07:59)
[2018-10-18] MEDS ORDERED: LEVOTHYROXINE 88 MCG TAB PO SCH ×2 (08:00→10:00)
--- NOTE | 2018-10-18 14:18 | ASMTCMCOM ---
CM Note CM Note Notes: Pt. reports feeling "not great". Pt. stated she is "not feeling well physically", adding she is having lower abdominal pain. Pt. reports she is "anxious to get out of here". Pt. stated she slept "not that great", adding she was offered trazodone but refused stating trazodone causes her to be dehydrated. Pt. reports eating better today than yesterday. Pt. reports no issues with her current medications. Pt. reports attending groups. Pt. stated she wants to discharge on Friday. Pt. stated she would like [facility] to schedule her follow up appointments after 11am. Pt. stated "Ivan wants me to work on getting a new therapist there". Pt. denied SI, HI, AVH and paranoia. Pt. presents as alert, tense, flat, fair eye contact, lacking insight, and cooperative. Staff report pt. sleeping 10 hours and refusing all of her medications. Date Signed: 10/18/2018 02:18 PM Electronically Signed By:Kaylee Duke
--- NOTE | 2018-10-18 16:15 | SOAPPROG ---
SOAP Progress Note Assessment/Plan: Assessment: Per Ivan Wells's notes: Major Depressive Disorder, Severe, With Anxious Distress. No improvement noted. Patient reports not feeling safe to discharge and could benefit from inpatient hospitalization for observation for safety and medication adjustment ( see subjective/objective note). Patient recently discharged from this hospital and decompensated quickly after discharge, leading to serious overdose with Oxycodone. Patient could benefit from additional stay to evaluate medications and establish safe discharge plan. Patient could benefit from continued inpatient hospitalization for crisis stabilization, safety, and medication evaluation. Plan: 1. Psychotropic medications: After reviewing options, risks, and benefits patient agrees to continue current medications. No medication changes at this time as more time is needed to determine ongoing tolerability and efficacy. Plan is to continue to observe patient for response and side effects from medications, and ongoing monitoring and evaluation. Plan: 10/17/18 18:02 1. Patient had repeat EKG on 10/16 d/t increased QTc interval on 10/13/18. Results pending. 2. Dr. Lyons recommended Senna BID PRN for constipation. Will order to start today. He recommended f/u CT abdomen if pain persists and not relieved by bowel movement. 3. Patient feels that Effexor is "not working" but reluctant to try a different medication. She has had ECT in past, but says she doesn't want any more ECT. MD discussed r/b/se's of different tx options including 1:1 and group psychotherapy to augment her medication tx. Patient says she is open to therapy and would like more information about what types of therapy are available through [facility]. 4. Patient is willing to sign in voluntarily. 5. CCM - no changes PLAN: 10/18/18 16:12 1. MD asked patient to complete wellness plan yesterday, but so far has not done. 2. Patient declined Senna this AM even though she still c/o abdominal pain. MD encouraged patient to drink plenty of fluids and use prune juice or Senna as needed to relieve constipation which is the most likely cause of her abdominal pain. 3. Patient initially c/o insomnia on admission and consented to take trazodone, but told RN and MD that she doesn't want it b/c it causes her to get "dehydrated." MD pointed out that she slept 10+ hrs last night without any medication. 4. Voluntary 5. CCM Subjective: Patient is out of her room and present in milieu more often today. When MD talked to patient she had just been sitting with her peers watching football on TV. She told MD that she still didn't feel all that well. She reports she still has lower abdominal pain and sleep has been "not that great." pointed out that Dr. Lyons recommended she try Senna (which patient requested) for constipation, but she declined this AM. Patient also refused prune juice when offered by RN. MD also pointed out that patient consented to take trazodone for sleep, but then told RN she wouldn't take it b/c it makes her "dehydrated." Despite patient claiming sleep wasn't "that great," staff noted she slept over 10 hrs last night. MD spent quite a bit of time yesterday discussing different types of individual and group therapy. MD asked patient to think about which types sounded most appealing to her and write them down in her wellness plan. When MD inquired about her wellness plan today, patient said she had not done it. Objective: Vital Signs Temp Pulse Resp BP Pulse Ox 36.9 C 76 16 162/86 H 98 10/18/18 06:00 10/18/18 06:00 10/18/18 06:00 10/18/18 06:00 10/18/18 06:00 MSE: Affect: Blunted Mood: "OK" TP: Linear TC: Denies any SI/HI Insight/ Judgment: Poor - Time Spent With Patient Time Spent With Patient: 15" - Pending Discharge Pending Discharge Within 24 Hours: No Pending Discharge Within 48 Hours: No ICD10 Worksheet Patient Problems: Problems Problem Status Onset Altered mental status Acute Overdose Acute Respiratory depression Acute Severe major depression Acute
[2018-10-18] MEDS: MAGNESIUM HYDROXIDE 30 ML UDCUP PO PRN (20:02)
[2018-10-18] MEDS: traZODone 100 MG TAB PO SCH (20:05)
[2018-10-19] MEDS: LEVOTHYROXINE 88 MCG TAB PO SCH (06:09)
[2018-10-19 06:36] VITALS: BP 161/82
[2018-10-19] MEDS: VENLAFAXINE XR 75 MG CAP PO SCH (07:48)
[2018-10-19] MEDS: VENLAFAXINE XR 150 MG CAP PO SCH (07:48)
--- NOTE | 2018-10-19 07:57 | SOAPPROG ---
SOAP Progress Note Assessment/Plan: Assessment: Major Depressive Disorder, Severe, With Anxious Distress. Slight improvement noted. Patient reports not feeling safe to discharge and could benefit from inpatient hospitalization for observation for safety and medication adjustment ( see subjective/objective note). Begin trial of Zyprexa Zydis 10 mg po QHS to begin tonight. Patient recently discharged from this hospital and decompensated quickly after discharge, leading to serious overdose with Oxycodone. Patient could benefit from additional stay to evaluate medications and establish safe discharge plan. Patient could benefit from continued inpatient hospitalization for crisis stabilization, safety, and medication evaluation. Plan: 1. Psychotropic medications: After reviewing options, risks, and benefits patient agrees to continue current medications, and agrees to trial of Zyprexa Zydis 10 mg po QHS. No medication changes at this time as more time is needed to determine ongoing tolerability and efficacy. Plan is to continue to observe patient for response and side effects from medications, and ongoing monitoring and evaluation. 2. Review with patient informed consent and recommendations for psychotropic medication treatment listed below 3. Labs/Studies: no additional at this time 4. Therapy: continue milieu and group therapy 5. Further investigation including gathering information from patients relatives and review of past case records to inform treatment plan. 6. Safety/Wellness plan and follow-up outpatient appointments to be established prior to discharge. Next steps are for patient to meet with transitional care liaison to plan a safe discharge plan and establish outpatient services for ongoing treatment. 7. Confer with inpatient treatment team regarding treatment plan. 8. Psychosocial stressors addressed through casework supervisor 9. Legal status: voluntary 10. Consider discharge Friday if patient is in stable condition, safe, and has a safe discharge plan. PSYCHOTROPIC MEDICATION TREATMENT INFORMED CONSENT and RECOMMENDATIONS: Review nature of condition, diagnosis, and prognosis. Review nature and purpose of psychotropic medication treatment. Review type of psychotropic medications being ordered. Review risk and benefits of psychotropic medication treatment. Review probable length of time patient will need to take medications. Review risk and benefits of not undergoing psychotropic medication treatment. Review alternative treatments to psychotropic medications. Review psychotropic medications contraindications, drug-drug interactions, side effects, and importance of reporting any side effects to a psychiatric provider or nurse during inpatient hospitalization, and upon discharge to patients psychiatric outpatient provider, primary care provider, or other health critical care educator. Review importance of asking a nurse, psychiatric provider, or primary care provider any questions or problems concerning the psychotropic medications. Verify patient understands the information that has been provided, and understands, accepts, and agrees to psychotropic medications. Review patients safety plan and importance of patient to report to staff while hospitalized if patient is ever a danger to self/others, or unable to care for self, and upon discharge, the importance for patient to contact [facility] or [facility], or go to the nearest emergency room, if patient is ever a danger to self/others, or unable to care for self. Recommend that upon discharge patient establish medication management treatment with a psychiatric provider, establishes routine therapy appointments, and follow-up with primary care provider. Verify patient understands and agrees to these recommendations. 10/19/18 07:56 Subjective: Following up with patient for evaluation of depression, anxiety, and safety. Patient reports, "Feeling better, not as depressed." Patient expresses the following psychiatric symptoms severe depression. Patient reports taking medications as prescribed, and describes response to medications as poor. Patient does not report undesirable side effects from the medications, and agrees to continue current medications. Patient describes getting 8 hours of sleep, and reports she slept on and off throughout the night. Patient agrees to trial of Zyprexa Zydis 10 mg po QHS to start tonight. Patient reports taking Zyprexa 5 mg po QHS in the past, and states, "It helped a little." Objective: Vital Signs Temp Pulse Resp BP Pulse Ox 36.6 C 79 14 161/82 H 100 10/19/18 06:00 10/19/18 06:00 10/19/18 06:00 10/19/18 06:00 10/19/18 06:00 - Time Spent With Patient Time Spent With Patient: 15 minutes, met with patient individually. - Pending Discharge Pending Discharge Within 24 Hours: Yes Pending Discharge Within 48 Hours: No Pending Discharge Date: 10/20/18 Pending Discharge Time: 11:00 ICD10 Worksheet Patient Problems: Problems Problem Status Onset Altered mental status Acute Overdose Acute Respiratory depression Acute Severe major depression Acute
[2018-10-19] MEDS ORDERED: OLANZapine DISINTEGR 10 MG TAB PO SCH (21:00)
[2018-10-19] MEDS: SENNOSIDES 1 TAB PO PRN (21:07)
[2018-10-20] MEDS: LEVOTHYROXINE 88 MCG TAB PO SCH (06:18)
[2018-10-20] MEDS: VENLAFAXINE XR 75 MG CAP PO SCH (07:41)
[2018-10-20] MEDS: VENLAFAXINE XR 150 MG CAP PO SCH (07:41)
--- NOTE | 2018-10-20 09:49 | BDS ---
REASON FOR ADMISSION: From the [facility] evaluation dated 10/14/2018, patient was placed on a 72-hour M1 hold with a start date and time of 10/12/2018, at 10:32 a.m. The patient reported to the [facility] call circuit worker, "I took an overdose of oxycodone." The patient was brought to the [facility] ED by [place] on an M1 hold. The M1 hold noted "responded to report of a female possibly overdosing." She was unconscious, barely breathing when officer arrived. The patient is severely depressed and stated she did not want to live anymore. Patient was admitted initially to ICU for further monitoring and medical stabilization. The patient was admitted involuntarily on an M1 hold due to being a danger to herself, was admitted for safety, crisis stabilization, and medication evaluation. ADMITTING DIAGNOSIS: Major depressive disorder, severe. ADMISSION PHYSICAL EXAM: The patient was seen for history and physical on 10/12. The patient was medically cleared for inpatient psychiatric hospitalization and treatment. For further details, please refer to history and physical note dated 10/12/2018. Also refer to hospitalist progress note on 10/13/2018, and discharge summary note from 10/14/2018. MAJOR PROCEDURES OR TESTS: Patient had an EKG completed on 10/13/2018, with a QTc interval of 537 msec. Patient had a repeat EKG performed on 10/16/2018, with a QTc interval of 422 msec. HOSPITAL COURSE: The most prominent symptoms and behaviors while the patient was here were reports of severe depression. At time of admission, patient was isolated to her room and avoided social interactions. Treatment modalities utilized were milieu and group therapy. Effexor XR 225 mg was continued to target mood symptoms, was tolerated with no report of side effects and with good response. Zyprexa Zydis 10 mg p.o. q.h.s. was started to target mood symptoms, was tolerated with no report of side effects and with good response. Trazodone 150 mg p.o. q.h.s. was discontinued as patient reported side effects of constipation and dry mouth. Patient has improved considerably, with no signs of psychiatric symptoms and no psychiatric symptoms expressed at time of discharge. The patient reports she has improved since admission, states to be in stable condition, feels safe to discharge, and she contracts for safety. Patient's response to treatment was good. There were no adverse or unexpected results of treatment. The patient was safe throughout her stay, active in treatment, engaged in groups, and was appropriate with staff and other patients. The patient met with the treatment team prior to discharge to assess readiness to discharge and review discharge plan. The treatment team consensus is the patient is in stable condition, has a safe discharge plan, and is ready to discharge today. CONDITION ON DISCHARGE: Patient is in stable condition and is no longer a danger to self or others, and is not gravely disabled due to mental illness. Patient is no longer in need of inpatient level of care, and can be safely and effectively treated within the community. The patients level of risk at time of discharge is low. MSE: The patient is casually dressed and with good hygiene , and looks stated age. Patient is sitting, posture is upright, and position is relaxed. Patient appears awake, alert, and responds appropriately and reasonably during interview. Patient is engaged, relates well to interviewer, and emotional facial expression is appropriate to situation and changes appropriately with topic. Patient is cooperative, makes comfortable eye contact , and movements are voluntary, deliberate, coordinated, and smooth and even with no inappropriate movements. Patient makes laryngeal sounds effortlessly and shares conversation appropriately; pace of conversation is appropriate, and stream of talking is fluent; articulation is clear and understandable; word choice is effortless and appropriate for education level; completes sentences, occasionally pausing to think; rate and volume are appropriate for interview and setting. Patient reports mood as euthymic. Patients affect is stable with full variable range, congruent with mood, and appropriate to speech and circumstances. Patient has linear and logical thinking, with no loose associations, tangential thought, thought blocking, concrete thinking, or any other signs of formal thought disorder. Patient denies suicidal and homicidal ideation, and denies hallucinations and delusions. Patient appears to be a reliable historian with sound judgement and good insight into current condition. Patient has no apparent dysfunction in recent or remote memory noted , and no evidence of gross cognitive dysfunction noted at any point during the interview. DISCHARGE DIAGNOSES: Major depressive disorder, severe. CURRENT MEDICATIONS: After reviewing options, risks and benefits with the patient, patient agrees to continue: 1. Synthroid 88 mcg p.o. daily at 1000. 2. Effexor XR 225 mg p.o. daily. 3. Zyprexa 10 mg p.o. q.h.s. The patient reports she has prescriptions of both Effexor and Synthroid and requests a prescription of Zyprexa 10 mg p.o. q.h.s. Prescription is written for 28 days to be distributed in 7 day supplies for Zyprexa 10 mg p.o. q.h.s. Medications and prescription are reviewed with the patient at time of discharge to ensure accuracy and patient understanding. DISPOSITION: Patient left hospital independently and voluntarily and plans to return to her home in [place], [place], and follow up with outpatient treatment at [facility] for ongoing medication evaluation and monitoring and therapy. FOLLOWUP: talent development coordinator reports the appropriate outpatient follow-up services have been established and outpatient appointments have been scheduled. The patient received written instructions with times and dates of outpatient follow-up appointments. The following follow-up recommendations were provided to the patient at discharge: Continue psychotropic medications as prescribed and attend appointments as scheduled. Report any side effects to a psychiatric outpatient provider, a primary care provider, or other health client care representative. Address any questions or problems concerning the psychotropic medications with a psychiatric outpatient provider, a primary care provider, or other health client care representative. Contact [facility] or [facility], or go to the nearest emergency room, if you are ever a danger to yourself/others, or unable to care for yourself. As soon as possible, establish a routine medication management treatment with a psychiatric provider, establish routine therapy appointments, and follow-up with a primary care provider. LEGAL COURSE: The patient was admitted on an M1 hold for involuntary inpatient psychiatric hospitalization. The patient became voluntary during the course of her hospitalization, and patient discharged today independently and voluntarily. ATTITUDE AT TIME OF DISCHARGE: The patients attitude was positive at time of discharge, and patient reports looking forward to discharging today. The patient reports she feels safe to discharge, is no longer a danger to herself or others, is in stable condition, and contracts for safety. Patient states she will continue medications as prescribed, and establish medication management treatment with an outpatient provider after discharge. Patient reports she understands the information that has been provided to her, and she understands, accepts, and agrees to psychotropic medications. Patient describes internal protective factors as the coping skills she has learned while hospitalized here, and she plans to continue to practice these coping skills after discharge. LABS AND STUDIES: There were no pending labs or studies at time of discharge. ADVANCE DIRECTIVES: There were no advance directives on file, and the patient was full code during this hospitalization. The following psychotropic medication treatment informed consent and recommendations were provided to the patient at time of discharge. Patient reports she understands, accepts, and agrees to the information that has been provided. PSYCHOTROPIC MEDICATION TREATMENT INFORMED CONSENT and RECOMMENDATIONS: Review nature of condition, diagnosis, and prognosis. Review nature and purpose of psychotropic medication treatment. Review type of psychotropic medications being prescribed. Review risk and benefits of psychotropic medication treatment. Review probable length of time will need to take medications. Review risk and benefits of not undergoing psychotropic medication treatment. Review alternative treatments to psychotropic medications. Review psychotropic medications contraindications, side effects, and importance of reporting any side effects to a psychiatric provider, primary care provider, or other health client care representative. Review importance of her asking a psychiatric provider or primary care provider any questions or problems concerning the psychotropic medications. Review importance of reporting to a psychiatric provider, primary care provider, or other health client care representative if she plans to or becomes . Review safety plan and the importance to contact [facility] or [facility] , or go to the nearest emergency room, if ever a danger to yourself/others, or unable to care for yourself. Recommend upon discharge to establish routine medication management treatment with a psychiatric provider, establish routine therapy appointments, and follow-up with a primary care provider. Verify patient understands, accepts, and agrees to the information that has been provided. SUICIDE ASSESSMENT FIVE-STEP EVALUATION AND TRIAGE (1) RISK FACTORS: (a) Suicidal behavior: suicide attempt by overdose prior to this hospitalization (b) Current/past psychiatric disorders: Major Depressive Disorder, Severe (c) Kessler symptoms: none expressed or exhibited at time of discharge (d) Family history: none (e) Precipitants/Stressors/Interpersonal: none (f) Change in treatment: discharge from psychiatric hospital (g) Access to firearms: none (2) PROTECTIVE FACTORS: (a) Internal: coping skills learned while hospitalized (b) External: family, friends, and future (c) Zyprexa prescription written to be distributed in 7 day supplies (3) SUICIDAL INQUIRY: (a) Ideation: none (b) Plan: none (c) Behaviors: none; patient was safe throughout stay with no suicidal or parasuicidal behaviors (d) Intent: none (4) RISK LEVEL: Low: modifiable risk factors, strong protective factors; no suicidal or self-injurious ideation. Intervention: treatment plan to reduce symptoms including medications and therapy, provided emergency/crisis numbers, and established follow-up plan. /[id number]/MODL MTDD
--- NOTE | 2018-10-20 11:14 | ASMTBHDC ---
Notes Note: Notes: CC confirmed client's discharge plans: [facility]: [facility] [address] [place] [address] [facility] Next Medication Appt: Next Therapy Appt: October 23 (10/23/18) at 10am, check in at 9:45am on the second floor.* Next PCP Appt: 10/29 at 10:05am check in w/ Caryn. Date Signed: 10/20/2018 11:14 AM Electronically Signed By:Timothy Quijano
== END 2018-10-20 13:10 | disposition home or self-care (01) | DRG 885 ==
LOC: BBEH 16:35
PROVIDERS: ADMIT Psychiatry & Neurology Psychiatry; ATTEND Psychiatry & Neurology Psychiatry
DX: F33.2 Major depressive disorder, recurrent severe without psychotic features (principal); K59.00 Constipation, unspecified; F31.9 Bipolar disorder, unspecified; F43.10 Post-traumatic stress disorder, unspecified; M79.7 Fibromyalgia; Z56.0 Unemployment, unspecified